=== PATIENT | female | born 1985 | race Caucasian/White ===

== ENCOUNTER 2019-03-27 12:57 | Inpatient (IN) | payer OTHER ==
[2019-03-27 13:25] VITALS: BMI 25.5
--- NOTE | 2019-03-27 17:44 | HP ---
CIWA Score - Admission Criteria OASAS Guidelines: Admission for Medically Managed Detox: Requires at least one of the followin. CIWA greater than 12 2. Seizures within the past 24 hours 3. Delirium tremens within the past 24 hours 4. Hallucinations within the past 24 hours 5. Acute intervention needed for co occurring medical disorder 6. Acute intervention needed for co occurring psychiatric disorder 7. Severe withdrawal that cannot be handled at a lower level of care (continued vomiting, continued diarrhea, abnormal vital signs) requiring intravenous medication and/or fluids 8. Admission ROS [facility] - HPI Chief Complaint: rehab from cocaine, pt on suboxone 34 yo with h/o seizures (epilepsy), mitral valve prolapse, joint pain. Recently fell- now with abrasion of L wrist area. Left inpt rehab 2 months ago, Pt states she relapsed 2 weeks ago- started using heroin (stopped Suboxone) and cocaine about a week, and went for a drug test at [facility] and was positive for illicits and sent here for rehab. PCP- in [place], originally from [employer] [employer] [place] Hero[place]- IV 1 bag yesterday morning cocaine- last use 2 days ago THC- denies DUR- suboxone 4mg #60 on 03/19/19 Concerta 36 mg #30 03/19/19 Utox- beatriz, MOP, Bup, THC Allergies/Adverse Reactions: Allergies Allergy/AdvReac Type Severity Reaction Status Date / Time amoxicillin Allergy Intermediate Hives Verified 03/27/19 13:11 Penicillins Allergy Intermediate Hives Verified 03/27/19 13:11 - Ebola screening Have you traveled outside of the country in the last 21 days: No Have you had contact with anyone from an Ebola affected area: No Patient History - Patient Medical History Hx Cardiac Disorders: Yes (mitral valve prolapse) Hx Seizures: Yes Other Medical History: arm abrasion - Patient Surgical History Other Surgical History: ankle surgery, R hand - PPD History Documented Results: Negative w/o proof - Smoking Cessation Smoking history: Current every day smoker Have you smoked in the past 12 months: Yes Aproximately how many cigarettes per day: 20 Hx Chewing Tobacco Use: No Initiated information on smoking cessation: Yes 'Breaking Loose' booklet given: 03/27/19 - Substances abused Heroin Substance route: Injection Frequency: Daily Amount used: 1BAG Age of first use: 27 Date of last use: 03/26/19 Cocaine Substance route: Injection Frequency: 1-2 times per week Amount used: 1BAG Age of first use: 27 Date of last use: 03/24/19 Family Disease History - Family Disease History Family Disease History: Heart Disease: Grandparent Admission Physical Exam [facility] - Vital Signs Vital Signs: Vital Signs - 24 hr 03/27/19 13:08 Temperature 97.5 F L Pulse Rate 90 Respiratory 18 Rate Blood Pressure 106/67 - Physical General Appearance: Yes: Within Normal Limits, No Apparent Distress HEENTM: Yes: Within Normal Limits, EOMI, Hearing grossly Normal, Normal ENT Inspection, Normal Voice Respiratory: Yes: Within Normal Limits, Chest Non-Tender, Lungs Clear Neck: Yes: Within Normal Limits Cardiology: Yes: Within Normal Limits, Regular Rate, S1, S2 Abdominal: Yes: Within Normal Limits, Normal Bowel Sounds, Other (navel ring) Genitourinary: Yes: Within Normal Limits Back: Yes: Within Normal Limits Musculoskeletal: Yes: Within Normal Limits Extremities: Yes: Other (bruises and scratches from fall) Neurological: Yes: Within Normal Limits, mutual fund accountant II-XII NML intact, Normal Mood/ Affect, Normal Response Integumentary: Yes: Track Rojas, Other (with 2" X 3" superficial ulcer inner aspect of L forearm- some exudate on surface of ulcer- no evidence of ceullitis) - Diagnostic (1) Cocaine use disorder Current Visit: Yes Status: Acute (2) Opioid use disorder Current Visit: Yes Status: Acute (3) Seizures Current Visit: Yes Status: Acute (4) ADHD Current Visit: Yes Status: Acute (5) Depression Current Visit: Yes Status: Acute (6) Anxiety Current Visit: Yes Status: Acute Breathalyzer - Breathalyzer Breathalyzer: 0 Urine Drug Screen - Test Device Lot number: [id number] Expiration date: 12/14/20 - Control Is test valid?: Yes - Results Drug screen NEGATIVE: No Urine drug screen results: THC-Marijuana, BEATRIZ-Cocaine, MOP-Opiates, BUP-Suboxone Inpatient Rehab Admission - Rehab Decision to Admit Inpatient rehab admission?: Yes - Initial Determination Are CD services needed?: Yes Free of communicable disease: Yes Not in need of hospitalization: Yes - Rehab Admission Criteria Previous failed treatment: Yes Poor recovery environment: Yes Comorbidities: Yes Lacks judgement: Yes Patient is meeting Inpatient Rehab admission criteria:: Yes (cocaine use)
[2019-03-27] MEDS ORDERED: MAGNESIUM CITRATE 300 ML BOTTLE PO PRN (17:56)
[2019-03-27] MEDS ORDERED: LOPERAMIDE HCL 2 MG CAPSULE PO PRN (17:56)
[2019-03-27] MEDS ORDERED: MENTHOL/PHENOL 1 EACH UD MM PRN (17:56)
[2019-03-27] MEDS ORDERED: MAGNESIUM HYDROX 2400MG/30ML ORAL SUSPENSION 30 ML CUP PO PRN (17:56)
[2019-03-27] MEDS ORDERED: guaiFENesin 200 MG/10 ML 10 ML UNIT-DOSE CUPS PO PRN (17:56)
[2019-03-27] MEDS ORDERED: MAG HYDROX/AL HYDROX/SIMETH 30 ML UNIT-DOSE CUP PO PRN (17:56)
[2019-03-27] MEDS ORDERED: P-EPHED 60MG/TRIPROLIDI 2.5MG TABLET PO PRN (17:56)
[2019-03-27] MEDS: BACITRACIN 15 GM TUBE TOPICAL OINTMENT TP SCH (19:41)
[2019-03-27] MEDS: PHENYTOIN NA EXTENDED 100 MG CAPSULE (FP) PO SCH (21:12)
[2019-03-27] MEDS: SULFAMETHOXAZOLE/TRIMETHOPRIM 800MG/160MG D.S. TABLET PO SCH (21:12)
[2019-03-27] MEDS: GABAPENTIN 300 MG CAPSULE (FP) PO SCH (21:13)
[2019-03-27] MEDS: BUPRENORPHINE/NALOXONE 2 MG/0.5 MG FILM PACKET SL SCH (21:13)
[2019-03-27] MEDS: THIAMINE HCL 100 MG TABLET (FP) PO SCH (21:14)
[2019-03-27] MEDS ORDERED: traZODone HCL 50 MG TABLET (FP) PO SCH (22:00)
[2019-03-28] MEDS: GABAPENTIN 300 MG CAPSULE (FP) PO SCH ×3 (06:33→21:14)
[2019-03-28] MEDS: PHENYTOIN NA EXTENDED 100 MG CAPSULE (FP) PO SCH ×3 (06:34→21:14)
[2019-03-28] MEDS: BACITRACIN 15 GM TUBE TOPICAL OINTMENT TP SCH (09:28)
[2019-03-28] MEDS: NICOTINE 21 MG/24 HOURS TOPICAL PATCH TD SCH (09:29)
[2019-03-28] MEDS: SULFAMETHOXAZOLE/TRIMETHOPRIM 800MG/160MG D.S. TABLET PO SCH ×2 (09:29→21:14)
[2019-03-28] MEDS: PRENATAL VITAMINS W/ FOLIC ACID TABLET (FP) PO SCH (09:30)
[2019-03-28] MEDS: FLUoxetine HCL 20 MG CAPSULE (FP) PO SCH (09:30)
[2019-03-28] MEDS: BUPRENORPHINE/NALOXONE 2 MG/0.5 MG FILM PACKET SL SCH ×2 (09:31→21:15)
[2019-03-28] MEDS ORDERED: VENLAFAXINE HCL 37.5 MG E.R. CAPSULE (FP) PO SCH (10:00)
[2019-03-28 12:31] LABS: HEMOGLOBIN 12.9 GM/dL (10.7-15.3); MCHC 33.9 g/dl (32.0-36.0); MEAN CELL VOLUME 91.4 fl (80-96); MEAN PLT VOLUME 7.7 fl (7.5-11.1); RBC 4.16 M/mm3 (3.60-5.2); RDW 13.9 % (11.6-15.6)
[2019-03-28 12:33] LABS: ALBUMIN 2.9 g/dl (3.4-5.0); BILIRUBIN,TOTAL 0.4 mg/dL (0.2-1); POTASSIUM 4.3 mmol/L (3.5-5.1)
[2019-03-28 12:34] LABS: PLATELET COUNT 270 K/MM3 (134-434)
[2019-03-28] MEDS ORDERED: PHENYTOIN NA EXTENDED 100 MG CAPSULE (FP) PO ONE (14:17)
--- NOTE | 2019-03-28 17:25 | CONSULT ---
[facility] Psychiatric Consult - Data Date of interview: 03/28/19 Admission source: [facility]. Court mandate. Identifying data: First contact with [facility] and direct admission to [facility] for this 34 y/o female, court mandated for inpatient rehabilitation treatment addressing opioid + cocaine dependence co-morbid with MDD and Anxiety Disorder. Interviewed at [facility], with Ms Fowler, a female nursing staff, in attendance. Patient is single, no children, domiciled, unemployed and supported on food stamps. Substance Abuse History: Discussed in this session. Patient reports that she has relapsed into heroin + cocaine use aout two weeks ago. Details in current [facility] report as follows : Smoking history: Current every day smoker. Have you smoked in the past 12 months: Yes. Aproximately how many cigarettes per day: 20. Hx Chewing Tobacco Use: No. Initiated information on smoking cessation: Yes. 'Breaking Loose' booklet given: 03/27/19. - Substances abused. Heroin. Substance route: Injection. Frequency: Daily. Amount used: 1BAG. Age of first use: 27. Date of last use: 03/26/19. Cocaine. Substance route : Injection. Frequency: 1-2 times per week. Amount used: 1BAG. Age of first use: 27. Date of last use: 03/24/19 Medical History: Remarkable for seizure disorder (on phenytoin), chronic joint pain and a history of mitral valve prolapse. Psychiatric History: No reported history of psychiatric hospitalizations. Patient indicates that she has started experiencing emotional disturbances during high school years (seen by guidance counselors). She entered treatment aroung age 19 (was placed on lexapro by a psychiatrist). Dropped out of psychiatric OPD care. Diagnosed with MDD, Anxiety Disorder and ADHD (on concerta ). Ms Blair is currently seeing a psychiatrist, for medication managemnt, at the [facility] in [facility]. Patient denies history of suicide attempts. Physical/Sexual Abuse/Trauma History: Patient denies. Additional Comment: Urine drug screen results: THC-Marijuana, SAÚL-Cocaine, MOP- Opiates, BUP-Suboxone. Noted. Mental Status Exam - Mental Status Exam Alert and Oriented to: Time, Place, Person Cognitive Function: Good Patient Appearance: Well Groomed (wearing eyeglasses, tall stature) Mood: Hopeful Affect: Appropriate, Normal Range Patient Behavior: Appropriate, Cooperative Speech Pattern: Clear, Appropriate Voice Loudness: Normal Thought Process: Intact, Goal Oriented Thought Disorder: Not Present Hallucinations: Denies Suicidal Ideation: Denies Homicidal Ideation: Denies Insight/Judgement: Fair Sleep: Well (now that she is on trazodone but she reports hypersomnia and requests decrease of dose) Appetite: Good Gait/Station: Normal Psychiatric Findings - Problem List ([place] 1, 2,3) (1) Opioid use disorder Current Visit: Yes Status: Chronic (2) Opioid dependence on agonist therapy Current Visit: Yes Status: Chronic (3) Cocaine use disorder Current Visit: Yes Status: Chronic (4) ADHD Current Visit: Yes Status: Chronic (5) History of depression Current Visit: Yes Status: Chronic (6) Insomnia Current Visit: Yes Status: Chronic (7) Non-compliance Current Visit: Yes Status: Chronic - Initial Treatment Plan Initial Treatment Plan: Psychoeducation. NA meetings. Sleep hygiene. Support and motivational counseling. Effexor discontinued. Prozac 20 mg po daily + trazodone 50 mg po hs (reduced from 150 mg). Side effects/benefits of each drug are discussed with patient. Ms Blair is in agreement with this plan of care. Observation.
[2019-03-28 18:07] LABS: EPI CELLS 14.2 /HPF (0-5/HPF); HYALINE CASTS 11 /lpf (0-8); URINE APPEARANCE CLEAR; URINE BACTERIA 236.9 /hpf (NEGATIVE); URINE BILIRUBIN NEGATIVE (NEGATIVE); URINE COLOR YELLOW; URINE GLUCOSE (UA) NEGATIVE (NEGATIVE); URINE KETONE NEGATIVE (NEGATIVE); URINE LEUK ESTERASE TRACE (NEGATIVE); URINE NITRITE NEGATIVE (NEGATIVE); URINE PROTEIN NEGATIVE (NEGATIVE); URINE RBC 2 /hpf (0-4); URINE UROBILINOGEN 0.2 mg/dL (0.2-1.0); URINE WBC 3 /hpf (0-5)
[2019-03-28] MEDS: traZODone HCL 50 MG TABLET (FP) PO SCH (21:15)
[2019-03-28] MEDS: THIAMINE HCL 100 MG TABLET (FP) PO SCH (21:16)
[2019-03-29] MEDS: IBUPROFEN 400 MG TABLET (FP) PO PRN ×3 (03:04→18:07)
[2019-03-29] MEDS: hydrOXYzine PAMOATE 25 MG CAPSULE (FP) PO PRN ×4 (03:27→21:53)
[2019-03-29] MEDS: PHENYTOIN NA EXTENDED 100 MG CAPSULE (FP) PO SCH ×3 (06:29→21:21)
[2019-03-29] MEDS: GABAPENTIN 300 MG CAPSULE (FP) PO SCH ×3 (06:29→21:22)
[2019-03-29] MEDS: PRENATAL VITAMINS W/ FOLIC ACID TABLET (FP) PO SCH (10:08)
[2019-03-29] MEDS: SULFAMETHOXAZOLE/TRIMETHOPRIM 800MG/160MG D.S. TABLET PO SCH ×2 (10:09→21:22)
[2019-03-29] MEDS: NICOTINE 21 MG/24 HOURS TOPICAL PATCH TD SCH (10:09)
[2019-03-29] MEDS: BUPRENORPHINE/NALOXONE 2 MG/0.5 MG FILM PACKET SL SCH (10:09)
[2019-03-29] MEDS: FLUoxetine HCL 20 MG CAPSULE (FP) PO SCH (10:09)
[2019-03-29] MEDS: BACITRACIN 15 GM TUBE TOPICAL OINTMENT TP SCH (10:09)
--- NOTE | 2019-03-29 11:09 | PN ---
S COWS - Scale Resting Pulse: 1= CT 81-100 Sweatin= No chills or Flushing (COWS score is 6, many symptoms have resolved since patient has been in rehab.) Restless Observation: 1= Difficult to Sit Still Pupil Size: 0= Normal to Room Light Bone or Joint Aches: 1= Mild Discomfort Runny Nose/ Eye Tearin= None (last time used was March 26. T) GI Upset > 30mins: 0= None Tremor Observation of Outstretched Hands: 1= Tremor Welch, Not Seen Yawning Observation: 0= None Anxiety or Irritability: 2=Irritable/Anxious Goose Flesh Skin: 0=Smooth Skin COWS Score: 6 S Progress Note (SOAP) Subjective: Client requesting increase in her suboxone, was taking for 1.5 years at 8mg BID , but recently relapsed on heroin. She is now on 4mg BID and feeling the urge to use although many of the withdrawal symptoms are resolving. Objective: see COWS- score 6. Medically stable. Heart rate regular, lungs clear, abd soft, non-tender, non-distended. BS+ 03/29/19 11:14 CBC, BMP 03/28/19 09:10 03/28/19 09:10 Vital Signs (72 hours) 03/27/19 03/27/19 03/28/19 13:08 18:11 00:30 Temperature 97.5 F L 97.8 F Pulse Rate 90 70 Respiratory 18 17 16 Rate Blood Pressure 106/67 116/73 03/28/19 03/28/19 03/29/19 03:30 07:09 00:30 Temperature 97.9 F Pulse Rate 91 H Respiratory 16 18 16 Rate Blood Pressure 104/66 03/29/19 06:53 Temperature 98.3 F Pulse Rate 81 Respiratory 18 Rate Blood Pressure 96/66 Laboratory Last Values WBC 5.0 K/mm3 (4.0-10.0) 03/28/19 09:10 RBC 4.16 M/mm3 (3.60-5.2) 03/28/19 09:10 Hgb 12.9 GM/dL (10.7-15.3) 03/28/19 09:10 Hct 38.0 % (32.4-45.2) 03/28/19 09:10 MCV 91.4 fl (80-96) 03/28/19 09:10 MCH 31.0 pg (25.7-33.7) 03/28/19 09:10 MCHC 33.9 g/dl (32.0-36.0) 03/28/19 09:10 RDW 13.9 % (11.6-15.6) 03/28/19 09:10 Plt Count 270 K/MM3 (134-434) 03/28/19 09:10 MPV 7.7 fl (7.5-11.1) 03/28/19 09:10 Sodium 143 mmol/L (136-145) 03/28/19 09:10 Potassium 4.3 mmol/L (3.5-5.1) 03/28/19 09:10 Chloride 109 mmol/L (98-107) H 03/28/19 09:10 Carbon Dioxide 27 mmol/L (21-32) 03/28/19 09:10 Anion Gap 7 MMOL/L (8-16) L 03/28/19 09:10 BUN 13.0 mg/dL (7-18) 03/28/19 09:10 Creatinine 1.0 mg/dL (0.55-1.3) 03/28/19 09:10 Est GFR (CKD-EPI)AfAm 85.12 03/28/19 09:10 Est GFR (CKD-EPI)NonAf 73.45 03/28/19 09:10 Random Glucose 88 mg/dL (74-106) 03/28/19 09:10 Calcium 9.0 mg/dL (8.5-10.1) 03/28/19 09:10 Total Bilirubin 0.4 mg/dL (0.2-1) 03/28/19 09:10 AST 17 U/L (15-37) 03/28/19 09:10 ALT 22 U/L (13-61) 03/28/19 09:10 Alkaline Phosphatase 66 U/L (45-117) 03/28/19 09:10 Total Protein 6.0 g/dl (6.4-8.2) L 03/28/19 09:10 Albumin 2.9 g/dl (3.4-5.0) L 03/28/19 09:10 Urine Color Yellow 03/28/19 06:50 Urine Appearance Clear 03/28/19 06:50 Urine pH 8.0 (5.0-8.0) 03/28/19 06:50 Ur Specific [place] 1.016 (1.010-1.035) 03/28/19 06:50 Urine Protein Negative (NEGATIVE) 03/28/19 06:50 Urine Glucose (UA) Negative (NEGATIVE) 03/28/19 06:50 Urine Ketones Negative (NEGATIVE) 03/28/19 06:50 Urine Blood Trace (NEGATIVE) 03/28/19 06:50 Urine Nitrite Negative (NEGATIVE) 03/28/19 06:50 Urine Bilirubin Negative (NEGATIVE) 03/28/19 06:50 Urine Urobilinogen 0.2 mg/dL (0.2-1.0) 03/28/19 06:50 Ur Leukocyte Esterase Trace (NEGATIVE) 03/28/19 06:50 Urine WBC (Auto) 3 /hpf (0-5) 03/28/19 06:50 Urine RBC (Auto) 2 /hpf (0-4) 03/28/19 06:50 Urine Casts (Auto) 11 /lpf (0-8) 03/28/19 06:50 U Epithel Cells (Auto) 14.2 /HPF (0-5/HPF) 03/28/19 06:50 Urine Bacteria (Auto) 236.9 /hpf (NEGATIVE) 03/28/19 06:50 POC Urine HCG, Qual Negative 03/27/19 17:34 Phenytoin 2.1 ug/ml (10.0-20.0) L 03/28/19 09:10 RPR Titer Nonreactive (NONREACTIVE) 03/28/19 09:10 Assessment: Experiencing wthdrawal symptoms. 03/29/19 11:16 Plan: Will increase suboxone to 8 mg BID.
[2019-03-29] MEDS ORDERED: BUPRENORPHINE/NALOXONE 2 MG/0.5 MG FILM PACKET SL ONE ×2 (11:18→11:21)
[2019-03-29] MEDS: THIAMINE HCL 100 MG TABLET (FP) PO SCH (21:21)
[2019-03-29] MEDS: traZODone HCL 50 MG TABLET (FP) PO SCH (21:22)
[2019-03-29] MEDS: MINERAL OIL/PETROLAT/WATER TOPICAL CREAM 113 GM JAR TP PRN (21:24)
[2019-03-29] MEDS ORDERED: BUPRENORPHINE/NALOXONE 8 MG/2 MG FILM PACKET SL ONE (22:00)
[2019-03-30] MEDS: hydrOXYzine PAMOATE 25 MG CAPSULE (FP) PO PRN ×2 (05:01→21:37)
[2019-03-30] MEDS: IBUPROFEN 400 MG TABLET (FP) PO PRN (05:01)
[2019-03-30] MEDS: PHENYTOIN NA EXTENDED 100 MG CAPSULE (FP) PO SCH ×3 (06:45→21:37)
[2019-03-30] MEDS: GABAPENTIN 300 MG CAPSULE (FP) PO SCH ×3 (06:45→21:37)
[2019-03-30] MEDS ORDERED: BACITRACIN 0.9 GM PACKET ONE (09:18)
[2019-03-30] MEDS: SULFAMETHOXAZOLE/TRIMETHOPRIM 800MG/160MG D.S. TABLET PO SCH ×2 (10:20→21:38)
[2019-03-30] MEDS: BACITRACIN 15 GM TUBE TOPICAL OINTMENT TP SCH (10:25)
[2019-03-30] MEDS: FLUoxetine HCL 20 MG CAPSULE (FP) PO SCH (10:29)
[2019-03-30] MEDS: PRENATAL VITAMINS W/ FOLIC ACID TABLET (FP) PO SCH (10:29)
[2019-03-30] MEDS: NICOTINE 21 MG/24 HOURS TOPICAL PATCH TD SCH (10:29)
[2019-03-30] MEDS: BUPRENORPHINE/NALOXONE 8 MG/2 MG FILM PACKET SL SCH ×2 (10:30→21:39)
--- NOTE | 2019-03-30 19:26 | PN ---
Psychiatric Progress Note Vital Signs: Vital Signs Period Temp Pulse Resp BP Sys/Carey Pulse Ox Last 24 Hr 97.9 F 79 16-18 110/72 Date of Session: 03/30/19 Chief Complaint:: " I feel irritable. I feel like this when i'm off my medications". HPI: Patient reports discontinuation symptoms from not accepting effexor. ROS: Patient coherent, calm and cooperative X3. Current Medications: Active Medications Generic Name Dose Route Start Last Admin Trade Name Freq PRN Reason Stop Dose Admin Acetaminophen 650 mg 03/27/19 17:56 Tylenol - PO Q4H PRN FEVER Al Hydroxide/Mg Hydroxide 30 ml 03/27/19 17:56 Mylanta Oral Suspension - PO Q6H PRN DYSPEPSIA Bacitracin 1 applic 03/27/19 18:30 03/30/19 10:25 Bacitracin - TP 1 applic DAILY CALISTA Administration Buprenorphine/Naloxone 1 each 03/30/19 10:00 03/30/19 10:30 Suboxone 8mg/2mg Sl Film - SL 04/05/19 09:59 1 each BID CALISTA Administration Eucalyptus/Menthol/Phenol/Sorbitol 1 each 03/27/19 17:56 Cepastat Lozenge - MM Q4H PRN SORE THROAT Fluoxetine HCl 20 mg 03/28/19 10:00 03/30/19 10:29 Prozac - PO 20 mg DAILY CALISTA Administration Gabapentin 600 mg 03/27/19 22:00 03/30/19 14:09 Neurontin - PO 600 mg TID CALISTA Administration Guaifenesin 10 ml 03/27/19 17:56 Robitussin - PO Q6H PRN COUGH Hydroxyzine Pamoate 25 mg 03/27/19 17:56 03/30/19 05:01 Vistaril - PO 25 mg Q4H PRN Administration AGITATION Ibuprofen 400 mg 03/27/19 17:56 03/30/19 05:01 Motrin - PO 400 mg Q6H PRN Administration Pain level 4-6 Loperamide HCl 4 mg 03/27/19 17:56 Imodium - PO Q6H PRN DIARRHEA Magnesium Citrate 300 ml 03/27/19 17:56 Citroma - PO Q48H PRN CONSTIPATION Magnesium Hydroxide 30 ml 03/27/19 17:56 Milk Of Magnesia - PO DAILY PRN CONSTIPATION Melatonin 5 mg 03/27/19 22:00 Melatonin PO HS PRN INSOMNIA Multi-Ingredient Lotion 1 applic 03/29/19 11:29 03/29/19 21:24 Eucerin (Small Jar) - TP 1 applic BID PRN Administration DRY SKIN Nicotine 21 mg 03/28/19 10:00 03/30/19 10:29 Nicoderm Patch - TD 21 mg DAILY CALISTA Administration Phenytoin Sodium 100 mg 03/27/19 22:00 03/30/19 14:08 Dilantin - PO 100 mg TID CALISTA Administration Multivit/Folic Acid/Iron 1 tab 03/28/19 10:00 03/30/19 10:29 Vitamins (Sjr) - PO 1 tab DAILY CALISTA Administration Pseudoephedrine/Triprolidine 1 combo 03/27/19 17:56 Actifed - PO TID PRN NASAL CONGESTION Thiamine HCl 100 mg 03/27/19 22:00 03/29/19 21:21 Vitamin B1 - PO 100 mg HS CALISTA Administration Trazodone HCl 50 mg 03/28/19 22:00 03/29/19 21:22 Desyrel - PO 50 mg HS CALISTA Administration Trimethoprim/Sulfamethoxazole 1 each 03/27/19 22:00 03/30/19 10:20 Bactrim Ds - PO 1 each BID CALISTA Administration Medication(s) Change(s): Yes. Current Side Effect: Yes Lab tests ordered: No Lab tests reviewed: No Provider note:: Patient requesting to be resumed on Effexor. Dr. Viera note read and appreciated. States she feels discontinuation symptoms from the effexor. Pharmacy contacted at [facility] @ [phone] and able to speak to pharmacy staff. As per pharmacy staff a prescription of the following medications were picked up by patient on February 26 (30 day supply): Effexor 75mg XR + Prozac 40mg daily + Trazodone 150mg + Lamictal 25mg. Patient reports taking effexor and prozac despite relapsing on heroin. Will resume patient on effexor 37.5 due to patient reporting discontinuation symptoms and prozac 20mg will be increased to 40mg. Trazodone will remain at 50mg HS. Lamictal will not be resumed at this time as there is no clinical justification to restart medication. Patient has reports noncompliance with lamictal. Patient in agreement with plan. Total face to face time:: 30 Mental Status Exam - Mental Status Exam Alert and Oriented to: Time, Place, Person Cognitive Function: Good Patient Appearance: Well Groomed Mood: Euthymic Affect: Appropriate Patient Behavior: Cooperative Speech Pattern: Appropriate Voice Loudness: Normal Thought Process: Goal Oriented Thought Disorder: Not Present Hallucinations: Denies Suicidal Ideation: Denies Homicidal Ideation: Denies Insight/Judgement: Poor Sleep: Fair Appetite: Fair Muscle strength/Tone: Normal Gait/Station: Normal Psychiatric Treatment Plan - Problem List (1) Cocaine use disorder Current Visit: Yes (2) History of depression Current Visit: Yes (3) Opioid dependence on agonist therapy Current Visit: Yes (4) Opioid use disorder Current Visit: Yes (5) Insomnia Current Visit: Yes
[2019-03-30] MEDS: THIAMINE HCL 100 MG TABLET (FP) PO SCH (21:37)
[2019-03-30] MEDS: traZODone HCL 50 MG TABLET (FP) PO SCH (21:37)
[2019-03-31] MEDS: GABAPENTIN 300 MG CAPSULE (FP) PO SCH ×3 (06:43→21:26)
[2019-03-31] MEDS: PHENYTOIN NA EXTENDED 100 MG CAPSULE (FP) PO SCH ×3 (06:44→21:26)
[2019-03-31] MEDS: hydrOXYzine PAMOATE 25 MG CAPSULE (FP) PO PRN ×3 (06:45→21:27)
--- NOTE | 2019-03-31 07:50 | PN ---
S Progress Note Note: SEEN FOR LEFT LOWER EXTREMITY ABRASION. CLIENT REPORTS CUTTING SELF WHILE SHAVING WITH [employer]OR [employer]ADE. Vital Signs Temperature 98.0 F 03/31/19 07:10 Pulse Rate 92 H 03/31/19 07:10 Respiratory Rate 16 03/31/19 07:10 Blood Pressure 97/65 03/31/19 07:10 O2 Sat by Pulse Oximetry (%) LLE ABOVE THE ANKLE NOTED WITH SUPERFICIAL ABRASION CLEANS W/ NS APPLY BACITRACIN WITH CDD DAILY X 5 DAYS
[2019-03-31] MEDS: IBUPROFEN 400 MG TABLET (FP) PO PRN ×2 (08:37→21:28)
[2019-03-31] MEDS ORDERED: PT OWN MED DRAWER 7, Y5N ONE (08:51)
[2019-03-31] MEDS: BACITRACIN 15 GM TUBE TOPICAL OINTMENT TP SCH (09:51)
[2019-03-31] MEDS: MINERAL OIL/PETROLAT/WATER TOPICAL CREAM 113 GM JAR TP PRN (09:51)
[2019-03-31] MEDS: BUPRENORPHINE/NALOXONE 8 MG/2 MG FILM PACKET SL SCH ×2 (09:51→21:26)
[2019-03-31] MEDS: PRENATAL VITAMINS W/ FOLIC ACID TABLET (FP) PO SCH (09:51)
[2019-03-31] MEDS: NICOTINE 21 MG/24 HOURS TOPICAL PATCH TD SCH (09:51)
[2019-03-31] MEDS: SULFAMETHOXAZOLE/TRIMETHOPRIM 800MG/160MG D.S. TABLET PO SCH ×2 (09:52→21:26)
[2019-03-31] MEDS: FLUoxetine HCL 20 MG CAPSULE (FP) PO SCH (09:52)
[2019-03-31] MEDS: VENLAFAXINE HCL 37.5 MG E.R. CAPSULE (FP) PO SCH (09:52)
--- NOTE | 2019-03-31 15:41 | PN ---
[facility] Progress Note Note: Patient is on dialntin 100mg 3 times/daily for seizures. Her value on 03/28 was 2.1. Today, her value is 7.8L Therapeutic levels can take 7- 10 days, will repeat the level 0n 04/02. Abnormal Lab Results 03/31/19 10:00 Phenytoin 7.8 L
[2019-03-31] MEDS: MELATONIN 5 MG TABLETS PO PRN (21:25)
[2019-03-31] MEDS: THIAMINE HCL 100 MG TABLET (FP) PO SCH (21:26)
[2019-03-31] MEDS: traZODone HCL 50 MG TABLET (FP) PO SCH (21:26)
[2019-04-01] MEDS: ACETAMINOPHEN 325 MG TABLET (FP) PO PRN (00:33)
[2019-04-01] MEDS: GABAPENTIN 300 MG CAPSULE (FP) PO SCH ×3 (06:40→21:31)
[2019-04-01] MEDS: PHENYTOIN NA EXTENDED 100 MG CAPSULE (FP) PO SCH ×3 (06:40→21:31)
[2019-04-01] MEDS: hydrOXYzine PAMOATE 25 MG CAPSULE (FP) PO PRN ×3 (06:40→19:10)
[2019-04-01] MEDS: BACITRACIN 15 GM TUBE TOPICAL OINTMENT TP SCH (09:45)
[2019-04-01] MEDS: VENLAFAXINE HCL 37.5 MG E.R. CAPSULE (FP) PO SCH (09:45)
[2019-04-01] MEDS: SULFAMETHOXAZOLE/TRIMETHOPRIM 800MG/160MG D.S. TABLET PO SCH ×2 (09:45→21:31)
[2019-04-01] MEDS: PRENATAL VITAMINS W/ FOLIC ACID TABLET (FP) PO SCH (09:46)
[2019-04-01] MEDS: FLUoxetine HCL 20 MG CAPSULE (FP) PO SCH (09:46)
[2019-04-01] MEDS: NICOTINE 21 MG/24 HOURS TOPICAL PATCH TD SCH (09:46)
[2019-04-01] MEDS: BUPRENORPHINE/NALOXONE 8 MG/2 MG FILM PACKET SL SCH ×2 (09:48→21:34)
[2019-04-01] MEDS: IBUPROFEN 400 MG TABLET (FP) PO PRN ×2 (13:38→21:32)
[2019-04-01] MEDS: traZODone HCL 50 MG TABLET (FP) PO SCH (21:31)
[2019-04-01] MEDS: THIAMINE HCL 100 MG TABLET (FP) PO SCH (21:31)
[2019-04-01] MEDS: MELATONIN 5 MG TABLETS PO PRN (21:32)
[2019-04-02] MEDS: hydrOXYzine PAMOATE 25 MG CAPSULE (FP) PO PRN ×4 (06:16→19:45)
[2019-04-02] MEDS: PHENYTOIN NA EXTENDED 100 MG CAPSULE (FP) PO SCH ×3 (06:16→21:15)
[2019-04-02] MEDS: GABAPENTIN 300 MG CAPSULE (FP) PO SCH ×3 (06:16→21:16)
[2019-04-02] MEDS: IBUPROFEN 400 MG TABLET (FP) PO PRN ×2 (06:17→19:45)
[2019-04-02] MEDS: NICOTINE 21 MG/24 HOURS TOPICAL PATCH TD SCH (09:57)
[2019-04-02] MEDS: FLUoxetine HCL 20 MG CAPSULE (FP) PO SCH (09:57)
[2019-04-02] MEDS: PRENATAL VITAMINS W/ FOLIC ACID TABLET (FP) PO SCH (09:57)
[2019-04-02] MEDS: SULFAMETHOXAZOLE/TRIMETHOPRIM 800MG/160MG D.S. TABLET PO SCH ×2 (09:57→21:15)
[2019-04-02] MEDS: BUPRENORPHINE/NALOXONE 8 MG/2 MG FILM PACKET SL SCH ×2 (09:57→21:15)
[2019-04-02] MEDS: MINERAL OIL/PETROLAT/WATER TOPICAL CREAM 113 GM JAR TP PRN (10:01)
[2019-04-02] MEDS: BACITRACIN 15 GM TUBE TOPICAL OINTMENT TP SCH (10:01)
[2019-04-02] MEDS: VENLAFAXINE HCL 37.5 MG E.R. CAPSULE (FP) PO SCH (10:02)
[2019-04-02] MEDS ORDERED: BENZOCAINE 20 % GEL TUBE MM PRN (12:57)
--- NOTE | 2019-04-02 13:30 | PN ---
[facility] Progress Note Note: Patient seen for c/o right eyebrow area discomfort after sustaining fall 3 weeks ago. Patient states she did not seek treatment after fall but reports tenderness to right frontal area. Patient denies dizziness, visual changes and headaches. Patient also c/o toothache as right lower molar cap fell off. Vital Signs Temperature 97.6 F 04/02/19 07:06 Pulse Rate 94 H 04/02/19 07:06 Respiratory Rate 18 04/02/19 07:06 Blood Pressure 119/79 04/02/19 07:06 O2 Sat by Pulse Oximetry (%) Laboratory Last Values WBC 5.0 K/mm3 (4.0-10.0) 03/28/19 09:10 RBC 4.16 M/mm3 (3.60-5.2) 03/28/19 09:10 Hgb 12.9 GM/dL (10.7-15.3) 03/28/19 09:10 Hct 38.0 % (32.4-45.2) 03/28/19 09:10 MCV 91.4 fl (80-96) 03/28/19 09:10 MCH 31.0 pg (25.7-33.7) 03/28/19 09:10 MCHC 33.9 g/dl (32.0-36.0) 03/28/19 09:10 RDW 13.9 % (11.6-15.6) 03/28/19 09:10 Plt Count 270 K/MM3 (134-434) 03/28/19 09:10 MPV 7.7 fl (7.5-11.1) 03/28/19 09:10 Sodium 143 mmol/L (136-145) 03/28/19 09:10 Potassium 4.3 mmol/L (3.5-5.1) 03/28/19 09:10 Chloride 109 mmol/L (98-107) H 03/28/19 09:10 Carbon Dioxide 27 mmol/L (21-32) 03/28/19 09:10 Anion Gap 7 MMOL/L (8-16) L 03/28/19 09:10 BUN 13.0 mg/dL (7-18) 03/28/19 09:10 Creatinine 1.0 mg/dL (0.55-1.3) 03/28/19 09:10 Est GFR (CKD-EPI)AfAm 85.12 03/28/19 09:10 Est GFR (CKD-EPI)NonAf 73.45 03/28/19 09:10 Random Glucose 88 mg/dL (74-106) 03/28/19 09:10 Calcium 9.0 mg/dL (8.5-10.1) 03/28/19 09:10 Total Bilirubin 0.4 mg/dL (0.2-1) 03/28/19 09:10 AST 17 U/L (15-37) 03/28/19 09:10 ALT 22 U/L (13-61) 03/28/19 09:10 Alkaline Phosphatase 66 U/L (45-117) 03/28/19 09:10 Total Protein 6.0 g/dl (6.4-8.2) L 03/28/19 09:10 Albumin 2.9 g/dl (3.4-5.0) L 03/28/19 09:10 Urine Color Yellow 03/28/19 06:50 Urine Appearance Clear 03/28/19 06:50 Urine pH 8.0 (5.0-8.0) 03/28/19 06:50 Ur Specific [place] 1.016 (1.010-1.035) 03/28/19 06:50 Urine Protein Negative (NEGATIVE) 03/28/19 06:50 Urine Glucose (UA) Negative (NEGATIVE) 03/28/19 06:50 Urine Ketones Negative (NEGATIVE) 03/28/19 06:50 Urine Blood Trace (NEGATIVE) 03/28/19 06:50 Urine Nitrite Negative (NEGATIVE) 03/28/19 06:50 Urine Bilirubin Negative (NEGATIVE) 03/28/19 06:50 Urine Urobilinogen 0.2 mg/dL (0.2-1.0) 03/28/19 06:50 Ur Leukocyte Esterase Trace (NEGATIVE) 03/28/19 06:50 Urine WBC (Auto) 3 /hpf (0-5) 03/28/19 06:50 Urine RBC (Auto) 2 /hpf (0-4) 03/28/19 06:50 Urine Casts (Auto) 11 /lpf (0-8) 03/28/19 06:50 U Epithel Cells (Auto) 14.2 /HPF (0-5/HPF) 03/28/19 06:50 Urine Bacteria (Auto) 236.9 /hpf (NEGATIVE) 03/28/19 06:50 POC Urine HCG, Qual Negative 03/27/19 17:34 Phenytoin 8.5 ug/ml (10.0-20.0) L 04/02/19 07:30 RPR Titer Nonreactive (NONREACTIVE) 03/28/19 09:10 PE: alert and oriented x 3 skin warm and dry +perrla, eoms intact bl no facial or right eyebrow swelling/ecchymosis, + tactile tenderness to right frontal area oral gums moist, pink, intact. no redness, discharge or swelling, + missing cap of right lower molar ext full rom, no edema A/P: toothache frontal area tenderness Will order facial bones xray increase motrin to 800mg bid order oralgel for toothache monitor clinically
[2019-04-02] MEDS: COLLOIDAL OATMEAL 1 BAR EACH TP PRN (14:39)
[2019-04-02] MEDS: THIAMINE HCL 100 MG TABLET (FP) PO SCH (21:15)
[2019-04-02] MEDS: traZODone HCL 50 MG TABLET (FP) PO SCH (21:15)
[2019-04-02] MEDS: MELATONIN 5 MG TABLETS PO PRN (21:17)
[2019-04-03] MEDS: hydrOXYzine PAMOATE 25 MG CAPSULE (FP) PO PRN ×4 (04:51→21:21)
[2019-04-03] MEDS: IBUPROFEN 400 MG TABLET (FP) PO PRN ×3 (04:51→17:37)
[2019-04-03] MEDS: GABAPENTIN 300 MG CAPSULE (FP) PO SCH ×3 (06:32→21:21)
[2019-04-03] MEDS: PHENYTOIN NA EXTENDED 100 MG CAPSULE (FP) PO SCH ×3 (06:32→21:21)
[2019-04-03] MEDS: FLUoxetine HCL 20 MG CAPSULE (FP) PO SCH (09:57)
[2019-04-03] MEDS: PRENATAL VITAMINS W/ FOLIC ACID TABLET (FP) PO SCH (09:57)
[2019-04-03] MEDS: BUPRENORPHINE/NALOXONE 8 MG/2 MG FILM PACKET SL SCH ×2 (09:57→21:22)
[2019-04-03] MEDS: SULFAMETHOXAZOLE/TRIMETHOPRIM 800MG/160MG D.S. TABLET PO SCH ×2 (09:57→21:21)
[2019-04-03] MEDS: MINERAL OIL/PETROLAT/WATER TOPICAL CREAM 113 GM JAR TP PRN (09:58)
[2019-04-03] MEDS: NICOTINE 21 MG/24 HOURS TOPICAL PATCH TD SCH (09:58)
[2019-04-03] MEDS ORDERED: PT OWN MED DRAWER 7, Y5N ONE ×5 (09:59→16:23)
[2019-04-03] MEDS: BACITRACIN 15 GM TUBE TOPICAL OINTMENT TP SCH (10:29)
[2019-04-03] MEDS: VENLAFAXINE HCL 37.5 MG E.R. CAPSULE (FP) PO SCH (10:55)
--- NOTE | 2019-04-03 11:55 | PN ---
[facility] Progress Note (SOAP) Subjective: Patient requesting to leave AMA. Objective: Patient A+O x3, no neurological deficits noted; heart sounds regular, lungs clear, abd flat, soft, non-tender, non-distended, +BS, ambulates with caution as noted previously when assessed for back pain. CBC, BMP 03/28/19 09:10 03/28/19 09:10 Vital Signs (72 hours) 04/01/19 04/01/19 04/02/19 03:30 07:17 07:06 Temperature 97.3 F L 97.6 F Pulse Rate 75 94 H Respiratory 16 18 18 Rate Blood Pressure 102/62 119/79 04/03/19 04/03/19 00:30 07:11 Temperature 97.6 F Pulse Rate 80 Respiratory 17 18 Rate Blood Pressure 99/67 04/03/19 11:53 Assessment: Medically stable for discharge. 04/03/19 11:55
[2019-04-03] MEDS: MAG HYDROX/ALH/SMC/DPHA/LIDO 240 ML MOUTHWASH MM SCH ×2 (13:15→18:30)
--- NOTE | 2019-04-03 14:08 | PN ---
S Progress Note Note: reporting that Ora-gel application increases the pain. Changed to Magic Mouthwash.
[2019-04-03] MEDS: traZODone HCL 50 MG TABLET (FP) PO SCH (21:21)
[2019-04-03] MEDS: THIAMINE HCL 100 MG TABLET (FP) PO SCH (21:21)
[2019-04-04] MEDS: MAG HYDROX/ALH/SMC/DPHA/LIDO 240 ML MOUTHWASH MM SCH ×4 (00:24→18:30)
[2019-04-04] MEDS: hydrOXYzine PAMOATE 25 MG CAPSULE (FP) PO PRN ×4 (01:15→14:19)
[2019-04-04] MEDS: MELATONIN 5 MG TABLETS PO PRN (01:15)
[2019-04-04] MEDS: PHENYTOIN NA EXTENDED 100 MG CAPSULE (FP) PO SCH ×3 (06:18→21:32)
[2019-04-04] MEDS: GABAPENTIN 300 MG CAPSULE (FP) PO SCH ×2 (06:18→14:18)
[2019-04-04] MEDS: IBUPROFEN 400 MG TABLET (FP) PO PRN ×2 (06:19→18:56)
[2019-04-04] MEDS ORDERED: PT OWN MED DRAWER 7, Y5N ONE ×2 (06:20→12:03)
[2019-04-04] MEDS: NICOTINE 21 MG/24 HOURS TOPICAL PATCH TD SCH (09:56)
[2019-04-04] MEDS: FLUoxetine HCL 20 MG CAPSULE (FP) PO SCH (09:56)
[2019-04-04] MEDS: VENLAFAXINE HCL 37.5 MG E.R. CAPSULE (FP) PO SCH (09:57)
[2019-04-04] MEDS: BACITRACIN 15 GM TUBE TOPICAL OINTMENT TP SCH (09:57)
[2019-04-04] MEDS: SULFAMETHOXAZOLE/TRIMETHOPRIM 800MG/160MG D.S. TABLET PO SCH ×2 (09:57→21:32)
[2019-04-04] MEDS: PRENATAL VITAMINS W/ FOLIC ACID TABLET (FP) PO SCH (09:57)
[2019-04-04] MEDS: ACETAMINOPHEN 325 MG TABLET (FP) PO PRN (10:00)
[2019-04-04] MEDS: BUPRENORPHINE/NALOXONE 8 MG/2 MG FILM PACKET SL SCH (10:00)
--- NOTE | 2019-04-04 11:30 | PN ---
S Progress Note Note: Patient now c/o pain in right foot from bone spurs that developed after a fall several months ago at another facility. PE: no swelling, discoloration, or misalignment noted. PLAN: patient is already on maximum dose of ibuprofen. Added lidoderm patch.
[2019-04-04] MEDS: LIDOCAINE 5% TOPICAL PATCH TP SCH (11:48)
[2019-04-04] MEDS: MINERAL OIL/PETROLAT/WATER TOPICAL CREAM 113 GM JAR TP PRN (14:20)
--- NOTE | 2019-04-04 14:45 | PN ---
[facility] Progress Note Note: NURSE ANDIE CALLED TO REPORT THIS PT WANTS A CHANGE TO HER SUBOXONE SCHEDULE. THAT PT STATES SHE WANTS NIGHT DOSE EARLIER AT 5 P.M BECAUSE 9PM DOSE KEEPS HER SLEEPLESS. PLAN:WILL CHANGE 10 PM DOSE TO 6P.M DAILY START SUBOXONE 8MG/2 MG SL BID AT 1000 & 1800.
--- NOTE | 2019-04-04 14:51 | PN ---
Psychiatric Progress Note Vital Signs: Vital Signs Period Temp Pulse Resp BP Sys/Carey Pulse Ox Last 24 Hr 97.0 F 69 16-18 111/65 Date of Session: 04/04/19 Chief Complaint:: Follow up ROS: Patient is a 34 years old female with history of ADHD, depression , Cocaine abuse, Opioid dependence on agonist therapy admitted to inpatient rehab onn03/27/19 Current Medications: Active Medications Generic Name Dose Route Start Last Admin Trade Name Freq PRN Reason Stop Dose Admin Acetaminophen 650 mg 03/27/19 17:56 04/04/19 10:00 Tylenol - PO 650 mg Q4H PRN Administration FEVER Al Hydroxide/Mg Hydroxide 30 ml 03/27/19 17:56 Mylanta Oral Suspension - PO Q6H PRN DYSPEPSIA Bacitracin 1 applic 03/27/19 18:30 04/04/19 09:57 Bacitracin - TP Not Given DAILY CALISTA Buprenorphine/Naloxone 1 each 04/05/19 10:00 Suboxone 8mg/2mg Sl Film - SL BID@1000,1800 CALISTA Colloidal Oatmeal 1 applic 04/02/19 12:58 04/02/19 14:39 Aveeno Soap - TP 1 applic DAILY PRN Administration HYGEINE Eucalyptus/Menthol/Phenol/Sorbitol 1 each 03/27/19 17:56 Cepastat Lozenge - MM Q4H PRN SORE THROAT Fluoxetine HCl 40 mg 03/30/19 19:28 04/04/19 09:56 Prozac - PO 40 mg DAILY CALISTA Administration Gabapentin 800 mg 04/04/19 22:00 Neurontin - PO TID CALISTA Guaifenesin 10 ml 03/27/19 17:56 Robitussin - PO Q6H PRN COUGH Hydroxyzine Pamoate 50 mg 04/04/19 14:39 Vistaril - PO Q4H PRN ANXIETY Ibuprofen 800 mg 04/02/19 13:33 04/04/19 06:19 Motrin - PO 800 mg Q12H PRN Administration Pain level 4-6 Lidocaine 1 patch 04/04/19 11:30 04/04/19 11:48 Lidoderm Patch - TP 1 patch DAILY CALISTA Administration Lidocaine/Aluminum/Magnesium/Simeth 5 ml 04/03/19 12:15 04/04/19 12:18 Magic Mouthwash *Sjr Formula* - MM 5 ml Q6HPO CALISTA Administration Loperamide HCl 4 mg 03/27/19 17:56 Imodium - PO Q6H PRN DIARRHEA Magnesium Citrate 300 ml 03/27/19 17:56 Citroma - PO Q48H PRN CONSTIPATION Magnesium Hydroxide 30 ml 03/27/19 17:56 Milk Of Magnesia - PO DAILY PRN CONSTIPATION Melatonin 5 mg 03/27/19 22:00 04/04/19 01:15 Melatonin PO 5 mg HS PRN Administration INSOMNIA Miscellaneous 1 each 04/04/19 22:00 Lidoderm Patch Removal MC DAILY@2200 CALISTA Multi-Ingredient Lotion 1 applic 03/29/19 11:29 04/04/19 14:20 Eucerin (Small Jar) - TP 1 applic BID PRN Administration DRY SKIN Nicotine 21 mg 03/28/19 10:00 04/04/19 09:56 Nicoderm Patch - TD 21 mg DAILY CALISTA Administration Phenytoin Sodium 100 mg 03/27/19 22:00 04/04/19 14:18 Dilantin - PO 100 mg TID CALISTA Administration Multivit/Folic Acid/Iron 1 tab 03/28/19 10:00 04/04/19 09:57 Vitamins (Sjr) - PO 1 tab DAILY CALISTA Administration Pseudoephedrine/Triprolidine 1 combo 03/27/19 17:56 Actifed - PO TID PRN NASAL CONGESTION Thiamine HCl 100 mg 03/27/19 22:00 04/03/19 21:21 Vitamin B1 - PO 100 mg HS CALISTA Administration Trazodone HCl 50 mg 03/28/19 22:00 04/03/19 21:21 Desyrel - PO 50 mg HS CALISTA Administration Trimethoprim/Sulfamethoxazole 1 each 03/27/19 22:00 04/04/19 09:57 Bactrim Ds - PO 1 each BID CALISTA Administration Venlafaxine HCl 37.5 mg 03/31/19 10:00 04/04/19 09:57 Effexor Xr - PO 37.5 mg DAILY CALISTA Administration Medication(s) Change(s): Increase Vistaril to 50 mg po Q 4hrs prn for anxitety and Gabapentin 800 mg po TID Current Side Effect: No Lab tests ordered: Yes Lab tests reviewed: Yes Provider note:: Patient reports feeling anxious despite taking Gabapentin 600 mg po TID, Effexor XR 37.5 mg po daily, Prozac 40 mg po daily and Vistaril 25 mg po Q 4hrs prn for anxiety. She does not want to accept increase in Effexor XR dose citing feeling depressed after doing that twice in the past. Discussed with patient about increasing Gabapentin to 800 mg/tid & Vistaril to 50 mg po Q 4hrs prn and she agreed to do that Total face to face time:: 25 Mental Status Exam - Mental Status Exam Alert and Oriented to: Time, Place, Person Cognitive Function: Fair Patient Appearance: Well Groomed Mood: Anxious Affect: Appropriate Patient Behavior: Cooperative Speech Pattern: Clear Voice Loudness: Normal Thought Process: Intact, Goal Oriented Thought Disorder: Not Present Hallucinations: Denies Suicidal Ideation: Denies Insight/Judgement: Fair Sleep: Fair Appetite: Good Muscle strength/Tone: Rigidity Gait/Station: Normal Psychiatric Treatment Plan - Problem List (1) ADHD Current Visit: Yes (2) History of depression Current Visit: Yes (3) Cocaine dependence Current Visit: Yes (4) Opioid dependence on agonist therapy Current Visit: Yes (5) Substance-induced sleep disorder Current Visit: Yes Initial treatment plan: 1) Discontinue Gabapentin and Vistaril as currently ordered. 2) Start Gabapentin 800 mg po TID and Vistaril 50 mg po Q 4hrs prn for anxiety. 3) Continue Prozac 40mg po daily, Effexor XR 37.5 mg po daily and Trazadone 50 mg po HS as currently ordered. 4) Continue inpatient rehabilitation
[2019-04-04] MEDS ORDERED: BUPRENORPHINE/NALOXONE 8 MG/2 MG FILM PACKET SL ONE (18:00)
[2019-04-04] MEDS: hydrOXYzine PAMOATE 50 MG CAPSULE (FP) PO PRN (18:57)
[2019-04-04] MEDS: traZODone HCL 50 MG TABLET (FP) PO SCH (21:32)
[2019-04-04] MEDS: THIAMINE HCL 100 MG TABLET (FP) PO SCH (21:32)
[2019-04-04] MEDS: LIDOCAINE PATCH REMOVAL MC SCH (21:33)
[2019-04-04] MEDS: GABAPENTIN 400 MG CAPSULE (FP) PO SCH (21:34)
[2019-04-05] MEDS: MAG HYDROX/ALH/SMC/DPHA/LIDO 240 ML MOUTHWASH MM SCH ×4 (00:39→18:30)
[2019-04-05] MEDS ORDERED: PT OWN MED DRAWER 7, Y5N ONE ×2 (03:17→08:26)
[2019-04-05] MEDS: ACETAMINOPHEN 325 MG TABLET (FP) PO PRN (03:45)
[2019-04-05] MEDS: hydrOXYzine PAMOATE 50 MG CAPSULE (FP) PO PRN ×4 (03:45→21:35)
[2019-04-05] MEDS: GABAPENTIN 400 MG CAPSULE (FP) PO SCH ×3 (06:37→21:35)
[2019-04-05] MEDS: PHENYTOIN NA EXTENDED 100 MG CAPSULE (FP) PO SCH ×3 (06:38→21:35)
[2019-04-05] MEDS: IBUPROFEN 400 MG TABLET (FP) PO PRN (06:38)
[2019-04-05] MEDS: VENLAFAXINE HCL 37.5 MG E.R. CAPSULE (FP) PO SCH (09:41)
[2019-04-05] MEDS: FLUoxetine HCL 20 MG CAPSULE (FP) PO SCH (09:41)
[2019-04-05] MEDS: BUPRENORPHINE/NALOXONE 8 MG/2 MG FILM PACKET SL SCH ×2 (09:41→18:49)
[2019-04-05] MEDS: NICOTINE 21 MG/24 HOURS TOPICAL PATCH TD SCH (09:41)
[2019-04-05] MEDS: PRENATAL VITAMINS W/ FOLIC ACID TABLET (FP) PO SCH (09:41)
[2019-04-05] MEDS: SULFAMETHOXAZOLE/TRIMETHOPRIM 800MG/160MG D.S. TABLET PO SCH ×2 (09:41→21:35)
[2019-04-05] MEDS: LIDOCAINE 5% TOPICAL PATCH TP SCH (09:42)
[2019-04-05] MEDS: BACITRACIN 15 GM TUBE TOPICAL OINTMENT TP SCH (09:44)
--- NOTE | 2019-04-05 10:09 | PN ---
S Progress Note (SOAP) Subjective: C/o numbness and tingling in toes. States that the numbness started yesterday. Reports that she cannot feel the tips of her toes, but can feel all other parts of her feet. PMHx of falls on coccyx and falls that resulted in injury to the ankles requiring surgery. Reports degenerative disc disease. No reported hx of Diabetes, HIV, or peripheral neuropathy.Presently on gabapentin. Objective: Slight swelling of right ankle noted, no discoloration of ankles, feet or calves bilaterally. Feet sensitive to blunt touch on all areas but toes. Unable to feel blunt of sharp touch on toes. Stride when walking is normal, able to place full foot on the ground, bend at arch and toes, no hesitancy noted. Full ROM ankles and feet. 04/05/19 10:09 CBC, BMP 03/28/19 09:10 03/28/19 09:10 Vital Signs (72 hours) 04/03/19 04/03/19 04/04/19 00:30 07:11 00:30 Temperature 97.6 F Pulse Rate 80 Respiratory 17 18 16 Rate Blood Pressure 99/67 04/04/19 04/04/19 04/05/19 03:30 06:55 03:30 Temperature 97.0 F L Pulse Rate 69 Respiratory 16 18 16 Rate Blood Pressure 111/65 04/05/19 06:48 Temperature 97.7 F Pulse Rate 79 Respiratory 18 Rate Blood Pressure 99/66 04/05/19 10:10 04/05/19 10:13 Assessment: Tingling and numbness in toes, cause unknown 04/05/19 10:11 Plan: Gabapentin was increased to 800mg BID from 600mg BID yesterday. This may help with the feelings of numbness and tingling. Patient is also on Vitamin B1. Advised patient to wear safe shoes when walking. F/U with primary care provider when discharged. Will make nurses aware of patient's problem and consider fall precautions.
[2019-04-05] MEDS: THIAMINE HCL 100 MG TABLET (FP) PO SCH (21:35)
[2019-04-05] MEDS: traZODone HCL 50 MG TABLET (FP) PO SCH (21:35)
[2019-04-05] MEDS: MELATONIN 5 MG TABLETS PO PRN (21:35)
[2019-04-05] MEDS: LIDOCAINE PATCH REMOVAL MC SCH (21:37)
[2019-04-06] MEDS: MAG HYDROX/ALH/SMC/DPHA/LIDO 240 ML MOUTHWASH MM SCH ×5 (00:39→23:26)
[2019-04-06] MEDS ORDERED: PT OWN MED DRAWER 7, Y5N ONE ×5 (03:01→21:39)
[2019-04-06] MEDS: hydrOXYzine PAMOATE 50 MG CAPSULE (FP) PO PRN ×3 (06:43→21:18)
[2019-04-06] MEDS: GABAPENTIN 400 MG CAPSULE (FP) PO SCH ×3 (06:44→21:19)
[2019-04-06] MEDS: IBUPROFEN 400 MG TABLET (FP) PO PRN ×2 (06:44→21:19)
[2019-04-06] MEDS: PHENYTOIN NA EXTENDED 100 MG CAPSULE (FP) PO SCH ×3 (06:44→21:19)
[2019-04-06] MEDS: SULFAMETHOXAZOLE/TRIMETHOPRIM 800MG/160MG D.S. TABLET PO SCH ×2 (09:42→21:19)
[2019-04-06] MEDS: VENLAFAXINE HCL 37.5 MG E.R. CAPSULE (FP) PO SCH (09:42)
[2019-04-06] MEDS: LIDOCAINE 5% TOPICAL PATCH TP SCH (09:42)
[2019-04-06] MEDS: PRENATAL VITAMINS W/ FOLIC ACID TABLET (FP) PO SCH (09:42)
[2019-04-06] MEDS: BACITRACIN 15 GM TUBE TOPICAL OINTMENT TP SCH (09:42)
[2019-04-06] MEDS: FLUoxetine HCL 20 MG CAPSULE (FP) PO SCH (09:42)
[2019-04-06] MEDS: NICOTINE 21 MG/24 HOURS TOPICAL PATCH TD SCH (09:42)
[2019-04-06] MEDS: BUPRENORPHINE/NALOXONE 8 MG/2 MG FILM PACKET SL SCH ×2 (09:45→17:29)
[2019-04-06] MEDS: ACETAMINOPHEN 325 MG TABLET (FP) PO PRN (10:43)
[2019-04-06] MEDS: traZODone HCL 50 MG TABLET (FP) PO SCH (21:19)
[2019-04-06] MEDS: THIAMINE HCL 100 MG TABLET (FP) PO SCH (21:19)
[2019-04-06] MEDS: LIDOCAINE PATCH REMOVAL MC SCH (21:19)
[2019-04-07] MEDS: hydrOXYzine PAMOATE 50 MG CAPSULE (FP) PO PRN ×4 (04:27→21:34)
[2019-04-07] MEDS ORDERED: PT OWN MED DRAWER 7, Y5N ONE (06:10)
[2019-04-07] MEDS: PHENYTOIN NA EXTENDED 100 MG CAPSULE (FP) PO SCH ×3 (06:29→21:37)
[2019-04-07] MEDS: MAG HYDROX/ALH/SMC/DPHA/LIDO 240 ML MOUTHWASH MM SCH ×3 (06:29→17:35)
[2019-04-07] MEDS: GABAPENTIN 400 MG CAPSULE (FP) PO SCH ×3 (06:29→21:37)
[2019-04-07] MEDS: BACITRACIN 15 GM TUBE TOPICAL OINTMENT TP SCH (09:40)
[2019-04-07] MEDS: NICOTINE 21 MG/24 HOURS TOPICAL PATCH TD SCH (09:40)
[2019-04-07] MEDS: LIDOCAINE 5% TOPICAL PATCH TP SCH (09:41)
[2019-04-07] MEDS: IBUPROFEN 400 MG TABLET (FP) PO PRN ×2 (09:42→21:37)
[2019-04-07] MEDS: FLUoxetine HCL 20 MG CAPSULE (FP) PO SCH (09:42)
[2019-04-07] MEDS: SULFAMETHOXAZOLE/TRIMETHOPRIM 800MG/160MG D.S. TABLET PO SCH ×2 (09:42→21:36)
[2019-04-07] MEDS: PRENATAL VITAMINS W/ FOLIC ACID TABLET (FP) PO SCH (09:42)
[2019-04-07] MEDS: VENLAFAXINE HCL 37.5 MG E.R. CAPSULE (FP) PO SCH (09:43)
[2019-04-07] MEDS: BUPRENORPHINE/NALOXONE 8 MG/2 MG FILM PACKET SL SCH ×2 (09:44→17:36)
[2019-04-07] MEDS: ACETAMINOPHEN 325 MG TABLET (FP) PO PRN (15:12)
[2019-04-07] MEDS: NICOTINE POLACRILEX 2 MG GUM BUC PRN (15:14)
[2019-04-07] MEDS: THIAMINE HCL 100 MG TABLET (FP) PO SCH (21:34)
[2019-04-07] MEDS: LIDOCAINE PATCH REMOVAL MC SCH (21:35)
[2019-04-07] MEDS: traZODone HCL 50 MG TABLET (FP) PO SCH (21:37)
[2019-04-08] MEDS: MAG HYDROX/ALH/SMC/DPHA/LIDO 240 ML MOUTHWASH MM SCH ×5 (00:59→23:24)
[2019-04-08] MEDS ORDERED: PT OWN MED DRAWER 7, Y5N ONE ×2 (05:51→08:21)
[2019-04-08] MEDS: GABAPENTIN 400 MG CAPSULE (FP) PO SCH ×3 (06:10→21:42)
[2019-04-08] MEDS: hydrOXYzine PAMOATE 50 MG CAPSULE (FP) PO PRN ×3 (06:10→21:44)
[2019-04-08] MEDS: ACETAMINOPHEN 325 MG TABLET (FP) PO PRN (06:10)
[2019-04-08] MEDS: PHENYTOIN NA EXTENDED 100 MG CAPSULE (FP) PO SCH ×3 (06:10→21:42)
[2019-04-08] MEDS: BUPRENORPHINE/NALOXONE 8 MG/2 MG FILM PACKET SL SCH ×2 (09:43→17:15)
[2019-04-08] MEDS: BACITRACIN 15 GM TUBE TOPICAL OINTMENT TP SCH (09:44)
[2019-04-08] MEDS: VENLAFAXINE HCL 37.5 MG E.R. CAPSULE (FP) PO SCH (09:44)
[2019-04-08] MEDS: LIDOCAINE 5% TOPICAL PATCH TP SCH (09:44)
[2019-04-08] MEDS: PRENATAL VITAMINS W/ FOLIC ACID TABLET (FP) PO SCH (09:44)
[2019-04-08] MEDS: NICOTINE 21 MG/24 HOURS TOPICAL PATCH TD SCH (09:44)
[2019-04-08] MEDS: FLUoxetine HCL 20 MG CAPSULE (FP) PO SCH (09:44)
[2019-04-08] MEDS: SULFAMETHOXAZOLE/TRIMETHOPRIM 800MG/160MG D.S. TABLET PO SCH ×2 (09:44→21:42)
[2019-04-08] MEDS: IBUPROFEN 400 MG TABLET (FP) PO PRN (09:45)
[2019-04-08] MEDS: traZODone HCL 50 MG TABLET (FP) PO SCH (21:42)
[2019-04-08] MEDS: THIAMINE HCL 100 MG TABLET (FP) PO SCH (21:42)
[2019-04-08] MEDS: LIDOCAINE PATCH REMOVAL MC SCH (22:03)
[2019-04-09] MEDS: GABAPENTIN 400 MG CAPSULE (FP) PO SCH ×3 (06:29→21:15)
[2019-04-09] MEDS: PHENYTOIN NA EXTENDED 100 MG CAPSULE (FP) PO SCH ×3 (06:29→21:15)
[2019-04-09] MEDS: MAG HYDROX/ALH/SMC/DPHA/LIDO 240 ML MOUTHWASH MM SCH ×3 (06:31→19:04)
[2019-04-09] MEDS: LIDOCAINE 5% TOPICAL PATCH TP SCH (09:35)
[2019-04-09] MEDS: VENLAFAXINE HCL 37.5 MG E.R. CAPSULE (FP) PO SCH (09:35)
[2019-04-09] MEDS: BACITRACIN 15 GM TUBE TOPICAL OINTMENT TP SCH (09:35)
[2019-04-09] MEDS: SULFAMETHOXAZOLE/TRIMETHOPRIM 800MG/160MG D.S. TABLET PO SCH (09:35)
[2019-04-09] MEDS: PRENATAL VITAMINS W/ FOLIC ACID TABLET (FP) PO SCH (09:36)
[2019-04-09] MEDS: NICOTINE 21 MG/24 HOURS TOPICAL PATCH TD SCH (09:36)
[2019-04-09] MEDS: FLUoxetine HCL 20 MG CAPSULE (FP) PO SCH (09:36)
[2019-04-09] MEDS: BUPRENORPHINE/NALOXONE 8 MG/2 MG FILM PACKET SL SCH ×2 (09:37→17:31)
--- NOTE | 2019-04-09 11:17 | PN ---
S Progress Note Note: PT REQUESTING LIDOCAINE PATCH DOSING TIME BE CHANGED TO 7 A.M. PT ALSO REQUESTING XRAY OF HER FINGERS STATING HIT IT MONTHE AGO BUT DENIES ANY DISCOMFORT. Vital Signs 04/09/19 04/09/19 03:30 07:05 Temperature 97.8 F Pulse Rate 82 Respiratory 18 18 Rate Blood Pressure 107/66 SKIN:CELLULITIS OF LEFT ARM RESOLVED RIGHT KNEE BRUISE HEALING WITH NO OPEN WOUND,DRAINAGE OR SCAB. ALL FINGERS WITH NO ACUTE REDNESS OR SWELLING OR PAIN. A:HX CELLULITIS PLAN:CONTINUE REHAB D/C BACTRIM DS--TX COMPLETE D/W PT TO FOLLOW UP WITH PRIMARY CARE/ORTHOPEDICS AFTER REHAB IF CONTINUED CONCERN.
[2019-04-09] MEDS ORDERED: LIDOCAINE VISCOUS 2% ORAL/TOP 100 ML BOTTLE MM PRN (11:18)
[2019-04-09] MEDS: IBUPROFEN 400 MG TABLET (FP) PO PRN (13:45)
[2019-04-09] MEDS: hydrOXYzine PAMOATE 50 MG CAPSULE (FP) PO PRN ×2 (13:46→19:05)
[2019-04-09] MEDS ORDERED: PT OWN MED DRAWER 7, Y5N ONE (17:17)
[2019-04-09] MEDS: ACETAMINOPHEN 325 MG TABLET (FP) PO PRN (19:05)
[2019-04-09] MEDS: THIAMINE HCL 100 MG TABLET (FP) PO SCH (21:15)
[2019-04-09] MEDS: traZODone HCL 50 MG TABLET (FP) PO SCH (21:15)
[2019-04-09] MEDS: LIDOCAINE PATCH REMOVAL MC SCH (21:16)
[2019-04-09] MEDS: MELATONIN 5 MG TABLETS PO PRN (21:17)
[2019-04-10] MEDS: MAG HYDROX/ALH/SMC/DPHA/LIDO 240 ML MOUTHWASH MM SCH ×5 (00:42→23:55)
[2019-04-10] MEDS: PHENYTOIN NA EXTENDED 100 MG CAPSULE (FP) PO SCH ×3 (06:22→21:27)
[2019-04-10] MEDS: IBUPROFEN 400 MG TABLET (FP) PO PRN (06:22)
[2019-04-10] MEDS: GABAPENTIN 400 MG CAPSULE (FP) PO SCH ×3 (06:22→21:27)
[2019-04-10] MEDS: hydrOXYzine PAMOATE 50 MG CAPSULE (FP) PO PRN ×3 (06:23→21:29)
[2019-04-10] MEDS: NICOTINE POLACRILEX 2 MG GUM BUC PRN (06:23)
[2019-04-10] MEDS: LIDOCAINE 5% TOPICAL PATCH TP SCH (06:24)
[2019-04-10] MEDS: FLUoxetine HCL 20 MG CAPSULE (FP) PO SCH (09:32)
[2019-04-10] MEDS: BUPRENORPHINE/NALOXONE 8 MG/2 MG FILM PACKET SL SCH ×2 (09:32→17:27)
[2019-04-10] MEDS: NICOTINE 21 MG/24 HOURS TOPICAL PATCH TD SCH (09:32)
[2019-04-10] MEDS: PRENATAL VITAMINS W/ FOLIC ACID TABLET (FP) PO SCH (09:32)
[2019-04-10] MEDS: VENLAFAXINE HCL 37.5 MG E.R. CAPSULE (FP) PO SCH (10:07)
[2019-04-10] MEDS: BACITRACIN 15 GM TUBE TOPICAL OINTMENT TP SCH (10:08)
--- NOTE | 2019-04-10 12:03 | PN ---
S Progress Note (SOAP) Subjective: patient requesting x-ray of right third digit. States that she requested an x- ray from the [facility] yesterday and was informed that it was not needed. Denies injury to hand prior to admission or while in rehab. Objective: Full ROM right third digit and finger. 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 No edema or echhymosis noted. 04/10/19 12:01 Assessment: Full ROM, right third digit. 04/10/19 12:02 Plan: There is no evidence at this time that an x-ray of the right third digit is needed. Will continue to monitor.
[2019-04-10] MEDS: THIAMINE HCL 100 MG TABLET (FP) PO SCH (21:27)
[2019-04-10] MEDS: traZODone HCL 50 MG TABLET (FP) PO SCH (21:27)
[2019-04-10] MEDS: LIDOCAINE PATCH REMOVAL MC SCH (21:28)
[2019-04-10] MEDS: MELATONIN 5 MG TABLETS PO PRN (21:29)
[2019-04-11] MEDS: hydrOXYzine PAMOATE 50 MG CAPSULE (FP) PO PRN ×3 (03:13→21:20)
[2019-04-11] MEDS: IBUPROFEN 400 MG TABLET (FP) PO PRN (03:13)
[2019-04-11] MEDS: GABAPENTIN 400 MG CAPSULE (FP) PO SCH ×3 (06:39→21:20)
[2019-04-11] MEDS: PHENYTOIN NA EXTENDED 100 MG CAPSULE (FP) PO SCH ×3 (06:39→21:20)
[2019-04-11] MEDS: MAG HYDROX/ALH/SMC/DPHA/LIDO 240 ML MOUTHWASH MM SCH ×3 (06:39→18:47)
[2019-04-11] MEDS: NICOTINE POLACRILEX 2 MG GUM BUC PRN (06:40)
[2019-04-11] MEDS: LIDOCAINE 5% TOPICAL PATCH TP SCH (06:41)
[2019-04-11] MEDS ORDERED: PT OWN MED DRAWER 7, Y5N ONE (09:13)
[2019-04-11] MEDS: PRENATAL VITAMINS W/ FOLIC ACID TABLET (FP) PO SCH (09:39)
[2019-04-11] MEDS: BACITRACIN 15 GM TUBE TOPICAL OINTMENT TP SCH (09:39)
[2019-04-11] MEDS: BUPRENORPHINE/NALOXONE 8 MG/2 MG FILM PACKET SL SCH ×2 (09:39→17:31)
[2019-04-11] MEDS: FLUoxetine HCL 20 MG CAPSULE (FP) PO SCH (09:39)
[2019-04-11] MEDS: NICOTINE 21 MG/24 HOURS TOPICAL PATCH TD SCH (09:39)
[2019-04-11] MEDS: VENLAFAXINE HCL 37.5 MG E.R. CAPSULE (FP) PO SCH (09:39)
[2019-04-11] MEDS: ACETAMINOPHEN 325 MG TABLET (FP) PO PRN (21:20)
[2019-04-11] MEDS: THIAMINE HCL 100 MG TABLET (FP) PO SCH (21:20)
[2019-04-11] MEDS: traZODone HCL 50 MG TABLET (FP) PO SCH (21:20)
[2019-04-11] MEDS: MELATONIN 5 MG TABLETS PO PRN (21:20)
[2019-04-11] MEDS: LIDOCAINE PATCH REMOVAL MC SCH (21:22)
[2019-04-12] MEDS: MAG HYDROX/ALH/SMC/DPHA/LIDO 240 ML MOUTHWASH MM SCH ×4 (00:22→18:08)
[2019-04-12] MEDS: ACETAMINOPHEN 325 MG TABLET (FP) PO PRN (02:36)
[2019-04-12] MEDS: hydrOXYzine PAMOATE 50 MG CAPSULE (FP) PO PRN ×4 (02:36→21:33)
[2019-04-12] MEDS: GABAPENTIN 400 MG CAPSULE (FP) PO SCH ×3 (06:09→21:33)
[2019-04-12] MEDS: NICOTINE POLACRILEX 2 MG GUM BUC PRN (06:09)
[2019-04-12] MEDS: PHENYTOIN NA EXTENDED 100 MG CAPSULE (FP) PO SCH ×3 (06:09→21:32)
[2019-04-12] MEDS: LIDOCAINE 5% TOPICAL PATCH TP SCH (06:10)
[2019-04-12] MEDS ORDERED: PT OWN MED DRAWER 7, Y5N ONE ×2 (08:36→09:08)
[2019-04-12] MEDS: BUPRENORPHINE/NALOXONE 8 MG/2 MG FILM PACKET SL SCH ×2 (09:07→17:57)
[2019-04-12] MEDS: VENLAFAXINE HCL 37.5 MG E.R. CAPSULE (FP) PO SCH (09:07)
[2019-04-12] MEDS: BACITRACIN 15 GM TUBE TOPICAL OINTMENT TP SCH (09:07)
[2019-04-12] MEDS: NICOTINE 21 MG/24 HOURS TOPICAL PATCH TD SCH (09:07)
[2019-04-12] MEDS: PRENATAL VITAMINS W/ FOLIC ACID TABLET (FP) PO SCH (09:07)
[2019-04-12] MEDS: IBUPROFEN 400 MG TABLET (FP) PO PRN (09:08)
[2019-04-12] MEDS: FLUoxetine HCL 20 MG CAPSULE (FP) PO SCH (09:42)
[2019-04-12] MEDS ORDERED: LIDOCAINE VISCOUS 2% ORAL/TOP 20 ML UNIT-DOSE CUP MM PRN (14:20)
--- NOTE | 2019-04-12 14:24 | PN ---
S Progress Note (SOAP) Subjective: pt c/o tooth discomfort on left lower molar. reports "magic mouthwash not effective". Objective: 04/12/19 14:22 Vital Signs 04/12/19 06:46 Temperature 97.9 F Pulse Rate 80 Respiratory 18 Rate Blood Pressure 110/69 lower right molar area, no redness or swelling noted. Assessment: 04/12/19 14:24 tooth ache Plan: Viscous lidocaine 2%swish as directed.
[2019-04-12] MEDS: traZODone HCL 50 MG TABLET (FP) PO SCH (21:32)
[2019-04-12] MEDS: THIAMINE HCL 100 MG TABLET (FP) PO SCH (21:32)
[2019-04-12] MEDS: MELATONIN 5 MG TABLETS PO PRN (21:33)
[2019-04-12] MEDS: LIDOCAINE PATCH REMOVAL MC SCH (21:34)
[2019-04-13] MEDS: MAG HYDROX/ALH/SMC/DPHA/LIDO 240 ML MOUTHWASH MM SCH ×5 (00:15→23:39)
[2019-04-13] MEDS ORDERED: PT OWN MED DRAWER 7, Y5N ONE ×3 (05:53→13:56)
[2019-04-13] MEDS: LIDOCAINE 5% TOPICAL PATCH TP SCH (07:13)
[2019-04-13] MEDS: GABAPENTIN 400 MG CAPSULE (FP) PO SCH ×3 (07:14→21:52)
[2019-04-13] MEDS: PHENYTOIN NA EXTENDED 100 MG CAPSULE (FP) PO SCH ×3 (07:15→21:52)
--- NOTE | 2019-04-13 09:31 | PN ---
Psychiatric Progress Note Vital Signs: Vital Signs Period Temp Pulse Resp BP Sys/Carey Pulse Ox Last 24 Hr 98.0 F 94 17-18 107/65 Date of Session: 04/13/19 Chief Complaint:: " I can't sleep and i still feel sad." HPI: Patient reports worsening anxiety, insomnia, and feeling sad. ROS: Patient coherent, alert and oriented X3. Current Medications: Active Medications Generic Name Dose Route Start Last Admin Trade Name Freq PRN Reason Stop Dose Admin Acetaminophen 650 mg 03/27/19 17:56 04/12/19 02:36 Tylenol - PO 650 mg Q4H PRN Administration FEVER Al Hydroxide/Mg Hydroxide 30 ml 03/27/19 17:56 Mylanta Oral Suspension - PO Q6H PRN DYSPEPSIA Bacitracin 1 applic 03/27/19 18:30 04/12/19 09:07 Bacitracin - TP Not Given DAILY CALISTA Buprenorphine/Naloxone 1 each 04/05/19 10:00 04/12/19 17:57 Suboxone 8mg/2mg Sl Film - SL 1 each BID@1000,1800 CALISTA Administration Colloidal Oatmeal 1 applic 04/02/19 12:58 04/02/19 14:39 Aveeno Soap - TP 1 applic DAILY PRN Administration HYGEINE Eucalyptus/Menthol/Phenol/Sorbitol 1 each 03/27/19 17:56 Cepastat Lozenge - MM Q4H PRN SORE THROAT Fluoxetine HCl 40 mg 03/30/19 19:28 04/12/19 09:42 Prozac - PO 40 mg DAILY CALISTA Administration Gabapentin 800 mg 04/04/19 22:00 04/13/19 07:14 Neurontin - PO 800 mg TID CALISTA Administration Guaifenesin 10 ml 03/27/19 17:56 Robitussin - PO Q6H PRN COUGH Hydroxyzine Pamoate 50 mg 04/04/19 14:39 04/12/19 21:33 Vistaril - PO 50 mg Q4H PRN Administration ANXIETY Ibuprofen 800 mg 04/02/19 13:33 04/12/19 09:08 Motrin - PO 800 mg Q12H PRN Administration Pain level 4-6 Lidocaine 1 patch 04/10/19 07:00 04/13/19 07:13 Lidoderm Patch - TP 1 patch DAILY@0700 CALISTA Administration Lidocaine HCl 20 ml 06/27/19 14:20 Xylocaine 2% Viscous Oral - MM TID PRN ORAL PAIN/MOUTH SORES Lidocaine/Aluminum/Magnesium/Simeth 5 ml 04/03/19 12:15 04/13/19 07:43 Magic Mouthwash *Sjr Formula* - MM Not Given Q6HPO CALISTA Loperamide HCl 4 mg 03/27/19 17:56 Imodium - PO Q6H PRN DIARRHEA Magnesium Citrate 300 ml 03/27/19 17:56 Citroma - PO Q48H PRN CONSTIPATION Magnesium Hydroxide 30 ml 03/27/19 17:56 Milk Of Magnesia - PO DAILY PRN CONSTIPATION Melatonin 5 mg 03/27/19 22:00 04/12/19 21:33 Melatonin PO 5 mg HS PRN Administration INSOMNIA Miscellaneous 1 each 04/04/19 22:00 04/12/19 21:34 Lidoderm Patch Removal MC 1 each DAILY@2200 CALISTA Administration Multi-Ingredient Lotion 1 applic 03/29/19 11:29 04/04/19 14:20 Eucerin (Small Jar) - TP 1 applic BID PRN Administration DRY SKIN Nicotine 21 mg 03/28/19 10:00 04/12/19 09:07 Nicoderm Patch - TD 21 mg DAILY CALISTA Administration Nicotine Polacrilex 2 mg 04/04/19 15:55 04/12/19 06:09 Nicorette Gum - BUC 2 mg Q2H PRN Administration NICOTINE REPLACEMENT RX Phenytoin Sodium 100 mg 03/27/19 22:00 04/13/19 07:15 Dilantin - PO 100 mg TID CALISTA Administration Multivit/Folic Acid/Iron 1 tab 03/28/19 10:00 04/12/19 09:07 Vitamins (Sjr) - PO 1 tab DAILY CALISTA Administration Pseudoephedrine/Triprolidine 1 combo 03/27/19 17:56 Actifed - PO TID PRN NASAL CONGESTION Thiamine HCl 100 mg 03/27/19 22:00 04/12/19 21:32 Vitamin B1 - PO 100 mg HS CALISTA Administration Trazodone HCl 50 mg 03/28/19 22:00 04/12/19 21:32 Desyrel - PO 50 mg HS CALISTA Administration Venlafaxine HCl 37.5 mg 03/31/19 10:00 04/12/19 09:07 Effexor Xr - PO 37.5 mg DAILY CALISTA Administration Medication(s) Change(s): Yes. Current Side Effect: No Lab tests ordered: No Lab tests reviewed: Yes Provider note:: Patient reports feeling sad secondary to her history of heroin dependence. Reports experiencing amotivation, feeling sluggish, and difficulty sleeping. Also reports worsening anxiety. Patient reports sobriety for 2 years and relapsed before admission to rehab. Patient is currently prescribed effexor 37.5 daily + Prozac 40mg + Trazodone 50mg. States the effexor only worsens her mood and is agreeable in discontinuing medication. Patient denies suicidal and homicidal ideation. Will d/c effexor 37.5. Will d/c prozac 40mg and order prozac 60mh. Will d/c Trazodone 50mg and order 100mg HS. Benefits and side effects discussed. Verbal consent given. Patient denies thoughts or urges to hurt self or others. Total face to face time:: 25 Mental Status Exam - Mental Status Exam Alert and Oriented to: Time, Place, Person Cognitive Function: Good Patient Appearance: Well Groomed Mood: Sad Affect: Appropriate Patient Behavior: Appropriate, Cooperative Speech Pattern: Appropriate Voice Loudness: Normal Thought Process: Intact, Goal Oriented Thought Disorder: Not Present Hallucinations: Denies Suicidal Ideation: Denies Homicidal Ideation: Denies Insight/Judgement: Poor Sleep: Poorly Appetite: Fair Muscle strength/Tone: Normal Gait/Station: Normal Psychiatric Treatment Plan - Problem List (1) Cocaine use disorder Current Visit: Yes (2) History of depression Current Visit: Yes (3) Opioid dependence on agonist therapy Current Visit: Yes (4) Opioid use disorder Current Visit: Yes (5) Insomnia Current Visit: Yes
[2019-04-13] MEDS: VENLAFAXINE HCL 37.5 MG E.R. CAPSULE (FP) PO SCH (09:41)
[2019-04-13] MEDS: BACITRACIN 15 GM TUBE TOPICAL OINTMENT TP SCH (09:41)
[2019-04-13] MEDS: FLUoxetine HCL 20 MG CAPSULE (FP) PO SCH (09:41)
[2019-04-13] MEDS: PRENATAL VITAMINS W/ FOLIC ACID TABLET (FP) PO SCH (09:41)
[2019-04-13] MEDS: NICOTINE 21 MG/24 HOURS TOPICAL PATCH TD SCH (09:42)
[2019-04-13] MEDS: hydrOXYzine PAMOATE 50 MG CAPSULE (FP) PO PRN ×3 (09:43→21:54)
[2019-04-13] MEDS: BUPRENORPHINE/NALOXONE 8 MG/2 MG FILM PACKET SL SCH ×2 (09:44→17:44)
[2019-04-13] MEDS ORDERED: HYDROCORTISONE 1% TOPICAL OINT 30 GM TUBE TP PRN (15:46)
--- NOTE | 2019-04-13 15:53 | PN ---
S Progress Note Note: pt states that she has had itching and redness of neck that started 2 days ago- has become worse. Went out today- exposed to heat and sun. States she has a h/o eczema. PE- redness across front side of neck, fine maculo-papular linear lines, elbow area cleared of past infection a/p: h/o eczema-with dermatitis across neck- hydrocrotisone ointment BID prn, re -evaluate if not better.
[2019-04-13] MEDS: THIAMINE HCL 100 MG TABLET (FP) PO SCH (21:52)
[2019-04-13] MEDS: MELATONIN 5 MG TABLETS PO PRN (21:52)
[2019-04-13] MEDS: LIDOCAINE PATCH REMOVAL MC SCH (21:53)
[2019-04-13] MEDS: traZODone HCL 100 MG TABLET (FP) PO SCH (21:54)
[2019-04-14] MEDS: GABAPENTIN 400 MG CAPSULE (FP) PO SCH ×3 (06:24→21:51)
[2019-04-14] MEDS: IBUPROFEN 400 MG TABLET (FP) PO PRN ×2 (06:25→17:52)
[2019-04-14] MEDS: PHENYTOIN NA EXTENDED 100 MG CAPSULE (FP) PO SCH ×3 (06:25→21:51)
[2019-04-14] MEDS: MAG HYDROX/ALH/SMC/DPHA/LIDO 240 ML MOUTHWASH MM SCH ×4 (06:25→23:15)
[2019-04-14] MEDS: hydrOXYzine PAMOATE 50 MG CAPSULE (FP) PO PRN ×2 (06:25→17:54)
[2019-04-14] MEDS: LIDOCAINE 5% TOPICAL PATCH TP SCH (06:26)
[2019-04-14] MEDS: NICOTINE 21 MG/24 HOURS TOPICAL PATCH TD SCH (09:32)
[2019-04-14] MEDS: PRENATAL VITAMINS W/ FOLIC ACID TABLET (FP) PO SCH (09:32)
[2019-04-14] MEDS: BUPRENORPHINE/NALOXONE 8 MG/2 MG FILM PACKET SL SCH ×2 (09:33→17:51)
[2019-04-14] MEDS ORDERED: FLUoxetine HCL 20 MG CAPSULE (FP) PO SCH (10:00)
[2019-04-14] MEDS: FLUoxetine HCL 20 MG CAPSULE (FP) PO SCH (11:00)
[2019-04-14] MEDS: traZODone HCL 100 MG TABLET (FP) PO SCH (21:51)
[2019-04-14] MEDS: THIAMINE HCL 100 MG TABLET (FP) PO SCH (21:51)
[2019-04-14] MEDS: LIDOCAINE PATCH REMOVAL MC SCH (21:51)
[2019-04-15] MEDS: hydrOXYzine PAMOATE 50 MG CAPSULE (FP) PO PRN ×2 (03:28→14:38)
[2019-04-15] MEDS: GABAPENTIN 400 MG CAPSULE (FP) PO SCH ×3 (06:09→21:07)
[2019-04-15] MEDS: PHENYTOIN NA EXTENDED 100 MG CAPSULE (FP) PO SCH ×3 (06:09→21:07)
[2019-04-15] MEDS: MAG HYDROX/ALH/SMC/DPHA/LIDO 240 ML MOUTHWASH MM SCH ×3 (06:10→17:50)
[2019-04-15] MEDS: LIDOCAINE 5% TOPICAL PATCH TP SCH (06:10)
[2019-04-15] MEDS: PRENATAL VITAMINS W/ FOLIC ACID TABLET (FP) PO SCH (09:38)
[2019-04-15] MEDS: COLLOIDAL OATMEAL 1 BAR EACH TP PRN (09:38)
[2019-04-15] MEDS: BUPRENORPHINE/NALOXONE 8 MG/2 MG FILM PACKET SL SCH ×2 (09:38→17:51)
[2019-04-15] MEDS: FLUoxetine HCL 20 MG CAPSULE (FP) PO SCH (09:39)
[2019-04-15] MEDS: NICOTINE 21 MG/24 HOURS TOPICAL PATCH TD SCH (09:39)
[2019-04-15] MEDS: IBUPROFEN 400 MG TABLET (FP) PO PRN (14:38)
[2019-04-15] MEDS ORDERED: PT OWN MED DRAWER 7, Y5N ONE ×2 (17:49→17:53)
[2019-04-15] MEDS: THIAMINE HCL 100 MG TABLET (FP) PO SCH (21:07)
[2019-04-15] MEDS: LIDOCAINE PATCH REMOVAL MC SCH (21:08)
[2019-04-15] MEDS: traZODone HCL 100 MG TABLET (FP) PO SCH (21:09)
[2019-04-15] MEDS: MELATONIN 5 MG TABLETS PO PRN (21:10)
[2019-04-15] MEDS: ACETAMINOPHEN 325 MG TABLET (FP) PO PRN (21:10)
[2019-04-16] MEDS: MAG HYDROX/ALH/SMC/DPHA/LIDO 240 ML MOUTHWASH MM SCH ×4 (02:54→17:41)
[2019-04-16] MEDS: IBUPROFEN 400 MG TABLET (FP) PO PRN (06:15)
[2019-04-16] MEDS: GABAPENTIN 400 MG CAPSULE (FP) PO SCH ×3 (06:15→21:05)
[2019-04-16] MEDS: PHENYTOIN NA EXTENDED 100 MG CAPSULE (FP) PO SCH ×3 (06:15→21:05)
[2019-04-16] MEDS: hydrOXYzine PAMOATE 50 MG CAPSULE (FP) PO PRN ×4 (06:16→22:18)
[2019-04-16] MEDS ORDERED: PT OWN MED DRAWER 7, Y5N ONE ×2 (06:37→08:42)
[2019-04-16] MEDS: LIDOCAINE 5% TOPICAL PATCH TP SCH (06:48)
[2019-04-16] MEDS: MINERAL OIL/PETROLAT/WATER TOPICAL CREAM 113 GM JAR TP PRN (06:51)
[2019-04-16] MEDS: NICOTINE 21 MG/24 HOURS TOPICAL PATCH TD SCH (09:33)
[2019-04-16] MEDS: FLUoxetine HCL 20 MG CAPSULE (FP) PO SCH (09:34)
[2019-04-16] MEDS: PRENATAL VITAMINS W/ FOLIC ACID TABLET (FP) PO SCH (09:34)
[2019-04-16] MEDS: BUPRENORPHINE/NALOXONE 8 MG/2 MG FILM PACKET SL SCH ×2 (09:34→17:42)
[2019-04-16] MEDS: ACETAMINOPHEN 325 MG TABLET (FP) PO PRN (13:57)
[2019-04-16] MEDS: MELATONIN 5 MG TABLETS PO PRN (21:05)
[2019-04-16] MEDS: THIAMINE HCL 100 MG TABLET (FP) PO SCH (21:05)
[2019-04-16] MEDS: LIDOCAINE PATCH REMOVAL MC SCH (21:05)
[2019-04-16] MEDS: traZODone HCL 100 MG TABLET (FP) PO SCH (21:06)
[2019-04-17] MEDS: MAG HYDROX/ALH/SMC/DPHA/LIDO 240 ML MOUTHWASH MM SCH ×5 (00:36→23:50)
[2019-04-17] MEDS: GABAPENTIN 400 MG CAPSULE (FP) PO SCH ×3 (06:42→21:18)
[2019-04-17] MEDS: LIDOCAINE 5% TOPICAL PATCH TP SCH (06:43)
[2019-04-17] MEDS: PHENYTOIN NA EXTENDED 100 MG CAPSULE (FP) PO SCH ×3 (06:43→21:18)
[2019-04-17] MEDS: NICOTINE 21 MG/24 HOURS TOPICAL PATCH TD SCH (09:38)
[2019-04-17] MEDS: PRENATAL VITAMINS W/ FOLIC ACID TABLET (FP) PO SCH (09:38)
[2019-04-17] MEDS: FLUoxetine HCL 20 MG CAPSULE (FP) PO SCH (09:38)
[2019-04-17] MEDS: BUPRENORPHINE/NALOXONE 8 MG/2 MG FILM PACKET SL SCH ×2 (09:38→18:12)
[2019-04-17] MEDS: hydrOXYzine PAMOATE 50 MG CAPSULE (FP) PO PRN ×3 (09:39→21:17)
[2019-04-17] MEDS: ACETAMINOPHEN 325 MG TABLET (FP) PO PRN (09:39)
--- NOTE | 2019-04-17 16:06 | PN ---
[facility] Progress Note (SOAP) Subjective: Patient continues to complain of rash around neck, shoulders, and chest. Was prescribed hydrocortisone cream yesterday, but states it is not working. States that she has experienced a rash from detergent in the past. Objective: Red, blotchy skin on chest, neck and shoulders, also redness on arms. Some light excoriation from scratching. 04/17/19 16:03 04/17/19 16:05 CBC, BMP 03/28/19 09:10 03/28/19 09:10 Vital Signs (72 hours) 04/15/19 04/15/19 04/16/19 00:30 07:07 00:30 Temperature 98.4 F Pulse Rate 76 Respiratory 18 18 18 Rate Blood Pressure 106/69 04/16/19 04/16/19 04/17/19 03:30 07:01 00:30 Temperature 97.8 F Pulse Rate 80 Respiratory 18 18 16 Rate Blood Pressure 92/58 L 04/17/19 04/17/19 03:30 07:11 Temperature 98.1 F Pulse Rate 76 Respiratory 16 18 Rate Blood Pressure 107/69 Assessment: Allergic dermatitis. Plan: Benadryl cream ordered. Will continue to monitor.
[2019-04-17] MEDS: THIAMINE HCL 100 MG TABLET (FP) PO SCH (21:17)
[2019-04-17] MEDS: MELATONIN 5 MG TABLETS PO PRN (21:17)
[2019-04-17] MEDS: traZODone HCL 100 MG TABLET (FP) PO SCH (21:18)
[2019-04-17] MEDS: LIDOCAINE PATCH REMOVAL MC SCH (21:19)
[2019-04-18] MEDS: hydrOXYzine PAMOATE 50 MG CAPSULE (FP) PO PRN ×4 (01:26→21:10)
[2019-04-18] MEDS: PHENYTOIN NA EXTENDED 100 MG CAPSULE (FP) PO SCH ×3 (06:23→21:10)
[2019-04-18] MEDS: GABAPENTIN 400 MG CAPSULE (FP) PO SCH ×3 (06:23→21:11)
[2019-04-18] MEDS: IBUPROFEN 400 MG TABLET (FP) PO PRN ×2 (06:24→20:15)
[2019-04-18] MEDS: LIDOCAINE 5% TOPICAL PATCH TP SCH (06:25)
[2019-04-18] MEDS: MAG HYDROX/ALH/SMC/DPHA/LIDO 240 ML MOUTHWASH MM SCH ×3 (06:26→17:23)
[2019-04-18] MEDS ORDERED: PT OWN MED DRAWER 7, Y5N ONE ×2 (08:40→21:09)
[2019-04-18] MEDS: NICOTINE 21 MG/24 HOURS TOPICAL PATCH TD SCH (09:52)
[2019-04-18] MEDS: FLUoxetine HCL 20 MG CAPSULE (FP) PO SCH ×2 (09:53→18:04)
[2019-04-18] MEDS: BUPRENORPHINE/NALOXONE 8 MG/2 MG FILM PACKET SL SCH ×2 (09:53→18:05)
[2019-04-18] MEDS: PRENATAL VITAMINS W/ FOLIC ACID TABLET (FP) PO SCH (09:53)
--- NOTE | 2019-04-18 10:56 | PN ---
Psychiatric Progress Note Vital Signs: Vital Signs Period Temp Pulse Resp BP Sys/Carey Pulse Ox Last 24 Hr 97.9 F 68 18-18 102/62 Date of Session: 04/18/19 Chief Complaint:: " I still feel anxious." HPI: Patient admitted to for opioid + cocaine dependence co-morbid with MDD and Anxiety Disorder. Patient presents as mildly anxious and reports feeling sad. ROS: Patient is coherent, alert and oriented X3. Current Medications: Active Medications Generic Name Dose Route Start Last Admin Trade Name Freq PRN Reason Stop Dose Admin Acetaminophen 650 mg 03/27/19 17:56 04/17/19 09:39 Tylenol - PO 650 mg Q4H PRN Administration FEVER Al Hydroxide/Mg Hydroxide 30 ml 03/27/19 17:56 Mylanta Oral Suspension - PO Q6H PRN DYSPEPSIA Buprenorphine/Naloxone 1 each 04/05/19 10:00 04/18/19 09:53 Suboxone 8mg/2mg Sl Film - SL 1 each BID@1000,1800 CALISTA Administration Colloidal Oatmeal 1 applic 04/02/19 12:58 04/15/19 09:38 Aveeno Soap - TP 1 bar DAILY PRN Administration HYGEINE Eucalyptus/Menthol/Phenol/Sorbitol 1 each 03/27/19 17:56 Cepastat Lozenge - MM Q4H PRN SORE THROAT Fluoxetine HCl 40 mg 04/14/19 10:00 04/18/19 09:53 Prozac - PO 40 mg DAILY CALISTA Administration Gabapentin 800 mg 04/04/19 22:00 04/18/19 06:23 Neurontin - PO 800 mg TID CALISTA Administration Guaifenesin 10 ml 03/27/19 17:56 Robitussin - PO Q6H PRN COUGH Hydrocortisone 1 applic 04/13/19 15:46 04/15/19 17:53 Hytone 1% Ointment - TP 1 applic BID PRN Administration FOR ITCHING Hydroxyzine Pamoate 50 mg 04/04/19 14:39 04/18/19 06:24 Vistaril - PO 50 mg Q4H PRN Administration ANXIETY Ibuprofen 800 mg 04/02/19 13:33 04/18/19 06:24 Motrin - PO 800 mg Q12H PRN Administration Pain level 4-6 Lidocaine 1 patch 04/10/19 07:00 04/18/19 06:25 Lidoderm Patch - TP 1 patch DAILY@0700 CALISTA Administration Lidocaine HCl 20 ml 04/12/19 14:20 04/13/19 14:02 Xylocaine 2% Viscous Oral - MM 20 ml TID PRN Administration ORAL PAIN/MOUTH SORES Lidocaine/Aluminum/Magnesium/Simeth 5 ml 04/03/19 12:15 04/18/19 06:26 Magic Mouthwash *Sjr Formula* - MM Not Given Q6HPO CALISTA Loperamide HCl 4 mg 03/27/19 17:56 Imodium - PO Q6H PRN DIARRHEA Magnesium Citrate 300 ml 03/27/19 17:56 Citroma - PO Q48H PRN CONSTIPATION Magnesium Hydroxide 30 ml 03/27/19 17:56 Milk Of Magnesia - PO DAILY PRN CONSTIPATION Melatonin 5 mg 03/27/19 22:00 04/17/19 21:17 Melatonin PO 5 mg HS PRN Administration INSOMNIA Miscellaneous 1 each 04/04/19 22:00 04/17/19 21:19 Lidoderm Patch Removal MC 1 each DAILY@2200 CALISTA Administration Multi-Ingredient Lotion 1 applic 03/29/19 11:29 04/16/19 06:51 Eucerin (Small Jar) - TP 1 applic BID PRN Administration DRY SKIN Nicotine 21 mg 03/28/19 10:00 04/18/19 09:52 Nicoderm Patch - TD 21 mg DAILY CALISTA Administration Nicotine Polacrilex 2 mg 04/04/19 15:55 04/12/19 06:09 Nicorette Gum - BUC 2 mg Q2H PRN Administration NICOTINE REPLACEMENT RX Phenytoin Sodium 100 mg 03/27/19 22:00 04/18/19 06:23 Dilantin - PO 100 mg TID CALISTA Administration Multivit/Folic Acid/Iron 1 tab 03/28/19 10:00 04/18/19 09:53 Vitamins (Sjr) - PO Not Given DAILY CALISTA Pseudoephedrine/Triprolidine 1 combo 03/27/19 17:56 Actifed - PO TID PRN NASAL CONGESTION Thiamine HCl 100 mg 03/27/19 22:00 04/17/19 21:17 Vitamin B1 - PO 100 mg HS CALISTA Administration Trazodone HCl 100 mg 04/13/19 22:00 04/17/19 21:18 Desyrel - PO 100 mg HS CALISTA Administration Zinc Acetate/Diphenhydramine 1 applic 04/17/19 15:05 04/18/19 09:52 Benadryl 2% Cream TP Not Given BID [facility] Medication(s) Change(s): Yes. Current Side Effect: No Lab tests ordered: No Lab tests reviewed: Yes Provider note:: Patient continues to report anxiety and sadness. Patient is currently prescribed prozac 40mg + Trazodone 100mg + Gabapentin 800mg TID. Patient states her anxiety is most likely from her lack of discharge plan as she does not know where she will be going after discharge. She continues to report sadness although is motivated to continue with rehab. Patient denies suicidal/homicidal ideation. Patient agreeable in accepting an increase in prozac. Will d/c prozac 40mg and order prozac 60mg. Total face to face time:: 25 Mental Status Exam - Mental Status Exam Alert and Oriented to: Time, Place, Person Cognitive Function: Good Patient Appearance: Well Groomed Mood: Sad Affect: Appropriate Patient Behavior: Cooperative Speech Pattern: Appropriate Voice Loudness: Normal Thought Process: Goal Oriented Thought Disorder: Not Present Hallucinations: Denies Suicidal Ideation: Denies Homicidal Ideation: Denies Insight/Judgement: Poor Sleep: Fair Appetite: Fair Muscle strength/Tone: Normal Gait/Station: Normal Psychiatric Treatment Plan - Problem List (1) Cocaine use disorder Current Visit: Yes (2) History of depression Current Visit: Yes (3) Opioid dependence on agonist therapy Current Visit: Yes (4) Opioid use disorder Current Visit: Yes (5) Insomnia Current Visit: Yes
--- NOTE | 2019-04-18 14:05 | PN ---
S Progress Note (SOAP) Subjective: Patient c/o right foot pain. States hx of bone spurs, treated this admission for pain in the right foot and tingling in the toes. Objective: No deformities noted bilaterally, some slight swelling of right foot. Full weight bearing and no hesitation in ambulating, Full ROM of ankles and feet. 04/18/19 14:00 04/18/19 14:03 Assessment: Chronic right foot pain. Bone Spurs 04/18/19 14:01 Patient is on maximum dose of motrin, has a lidocaine patch, with limited relief. 04/18/19 14:02 Plan: PLAN: will add muscle relaxant and shaun-charles to pain regimen. Instructed patient to elevate legs when at rest to reduce swelling.
[2019-04-18] MEDS: CYCLOBENZAPRINE HCL 10 MG TABLET (FP) PO SCH ×2 (14:54→21:11)
[2019-04-18] MEDS: traZODone HCL 100 MG TABLET (FP) PO SCH (21:11)
[2019-04-18] MEDS: MELATONIN 5 MG TABLETS PO PRN (21:11)
[2019-04-18] MEDS: METHYL SALICYLATE/MENTHOL OINT 30 GM TUBE TP SCH (21:12)
[2019-04-18] MEDS: LIDOCAINE PATCH REMOVAL MC SCH (21:13)
[2019-04-18] MEDS: THIAMINE HCL 100 MG TABLET (FP) PO SCH (21:13)
[2019-04-19] MEDS: MAG HYDROX/ALH/SMC/DPHA/LIDO 240 ML MOUTHWASH MM SCH ×2 (00:28→06:15)
[2019-04-19] MEDS: GABAPENTIN 400 MG CAPSULE (FP) PO SCH ×3 (06:15→21:32)
[2019-04-19] MEDS: hydrOXYzine PAMOATE 50 MG CAPSULE (FP) PO PRN ×3 (06:16→21:33)
[2019-04-19] MEDS: CYCLOBENZAPRINE HCL 10 MG TABLET (FP) PO SCH ×3 (06:16→21:32)
[2019-04-19] MEDS: IBUPROFEN 400 MG TABLET (FP) PO PRN (06:16)
[2019-04-19] MEDS: PHENYTOIN NA EXTENDED 100 MG CAPSULE (FP) PO SCH ×3 (06:16→21:33)
[2019-04-19] MEDS: LIDOCAINE 5% TOPICAL PATCH TP SCH (06:17)
[2019-04-19] MEDS ORDERED: PT OWN MED DRAWER 7, Y5N ONE (08:46)
[2019-04-19] MEDS: FLUoxetine HCL 20 MG CAPSULE (FP) PO SCH (09:37)
[2019-04-19] MEDS: NICOTINE 21 MG/24 HOURS TOPICAL PATCH TD SCH (09:37)
[2019-04-19] MEDS: PRENATAL VITAMINS W/ FOLIC ACID TABLET (FP) PO SCH (09:37)
[2019-04-19] MEDS: BUPRENORPHINE/NALOXONE 8 MG/2 MG FILM PACKET SL SCH ×2 (09:39→17:55)
[2019-04-19] MEDS: ACETAMINOPHEN 325 MG TABLET (FP) PO PRN (14:05)
--- NOTE | 2019-04-19 15:11 | PN ---
S Progress Note (SOAP) Subjective: States that pain in right foot continues. Described as stabbing. Was seen for same pain yesterday. Objective: Physical examination unchanged from yesterday. Full ROM and weight bearing. minimal swelling to right ankle and foot. 04/19/19 15:05 04/19/19 15:09 Assessment: Pain appears to fluctuate between numbness, tingling, and stabbing pain. Patient is on maximum dose of ibuprofen and high dose of gabapentin without relief. Also has a lidocaine patch. Yesterday a muscle relaxant and shaun-charles was added, with no relief. Diagnoses: Chronic right ankle pain Bone spurs 04/19/19 15:06 04/19/19 15:09 04/19/19 15:12 Plan: Will change ibuprofen to Naprosyn; add ankle bandage. Advised patient to elevate legs when at rest; exercises recommended. Alternating warm/cold compresses.
[2019-04-19] MEDS: MELATONIN 5 MG TABLETS PO PRN (21:32)
[2019-04-19] MEDS: THIAMINE HCL 100 MG TABLET (FP) PO SCH (21:32)
[2019-04-19] MEDS: NAPROXEN 500 MG TABLET (FP) PO SCH (21:34)
[2019-04-19] MEDS: LIDOCAINE PATCH REMOVAL MC SCH (21:35)
[2019-04-19] MEDS: traZODone HCL 100 MG TABLET (FP) PO SCH (21:35)
[2019-04-19] MEDS: METHYL SALICYLATE/MENTHOL OINT 30 GM TUBE TP SCH (21:35)
[2019-04-20] MEDS: LIDOCAINE 5% TOPICAL PATCH TP SCH (06:20)
[2019-04-20] MEDS: GABAPENTIN 400 MG CAPSULE (FP) PO SCH ×3 (06:20→21:25)
[2019-04-20] MEDS: CYCLOBENZAPRINE HCL 10 MG TABLET (FP) PO SCH ×3 (06:20→21:25)
[2019-04-20] MEDS: PHENYTOIN NA EXTENDED 100 MG CAPSULE (FP) PO SCH ×3 (06:20→21:25)
[2019-04-20] MEDS: NICOTINE POLACRILEX 2 MG GUM BUC PRN (06:24)
[2019-04-20] MEDS: NICOTINE 21 MG/24 HOURS TOPICAL PATCH TD SCH (09:55)
[2019-04-20] MEDS: NAPROXEN 500 MG TABLET (FP) PO SCH ×2 (09:55→21:25)
[2019-04-20] MEDS: FLUoxetine HCL 20 MG CAPSULE (FP) PO SCH (09:56)
[2019-04-20] MEDS: PRENATAL VITAMINS W/ FOLIC ACID TABLET (FP) PO SCH (09:56)
[2019-04-20] MEDS: BUPRENORPHINE/NALOXONE 8 MG/2 MG FILM PACKET SL SCH ×2 (09:56→17:36)
[2019-04-20] MEDS: hydrOXYzine PAMOATE 50 MG CAPSULE (FP) PO PRN ×3 (09:57→21:24)
[2019-04-20] MEDS: THIAMINE HCL 100 MG TABLET (FP) PO SCH (21:24)
[2019-04-20] MEDS: MELATONIN 5 MG TABLETS PO PRN (21:26)
[2019-04-20] MEDS: LIDOCAINE PATCH REMOVAL MC SCH (21:26)
[2019-04-20] MEDS: traZODone HCL 100 MG TABLET (FP) PO SCH (21:26)
[2019-04-20] MEDS: METHYL SALICYLATE/MENTHOL OINT 30 GM TUBE TP SCH (21:26)
[2019-04-21] MEDS: PHENYTOIN NA EXTENDED 100 MG CAPSULE (FP) PO SCH ×3 (06:27→21:05)
[2019-04-21] MEDS: GABAPENTIN 400 MG CAPSULE (FP) PO SCH ×3 (06:27→21:05)
[2019-04-21] MEDS: LIDOCAINE 5% TOPICAL PATCH TP SCH (06:27)
[2019-04-21] MEDS: CYCLOBENZAPRINE HCL 10 MG TABLET (FP) PO SCH ×3 (06:27→21:05)
[2019-04-21] MEDS: FLUoxetine HCL 20 MG CAPSULE (FP) PO SCH (09:45)
[2019-04-21] MEDS: BUPRENORPHINE/NALOXONE 8 MG/2 MG FILM PACKET SL SCH ×2 (09:45→17:27)
[2019-04-21] MEDS: NAPROXEN 500 MG TABLET (FP) PO SCH ×2 (09:45→21:05)
[2019-04-21] MEDS: PRENATAL VITAMINS W/ FOLIC ACID TABLET (FP) PO SCH (09:45)
[2019-04-21] MEDS: NICOTINE 21 MG/24 HOURS TOPICAL PATCH TD SCH (09:45)
[2019-04-21] MEDS: hydrOXYzine PAMOATE 50 MG CAPSULE (FP) PO PRN ×3 (09:46→21:08)
[2019-04-21] MEDS ORDERED: PT OWN MED DRAWER 7, Y5N ONE (14:55)
[2019-04-21] MEDS: traZODone HCL 100 MG TABLET (FP) PO SCH (21:05)
[2019-04-21] MEDS: MELATONIN 5 MG TABLETS PO PRN (21:06)
[2019-04-21] MEDS: THIAMINE HCL 100 MG TABLET (FP) PO SCH (21:06)
[2019-04-21] MEDS: LIDOCAINE PATCH REMOVAL MC SCH (21:09)
[2019-04-21] MEDS: METHYL SALICYLATE/MENTHOL OINT 30 GM TUBE TP SCH (21:09)
[2019-04-22] MEDS: LIDOCAINE 5% TOPICAL PATCH TP SCH (06:52)
[2019-04-22] MEDS: CYCLOBENZAPRINE HCL 10 MG TABLET (FP) PO SCH ×3 (06:52→21:12)
[2019-04-22] MEDS: GABAPENTIN 400 MG CAPSULE (FP) PO SCH ×3 (06:52→21:12)
[2019-04-22] MEDS: PHENYTOIN NA EXTENDED 100 MG CAPSULE (FP) PO SCH ×3 (06:52→21:12)
[2019-04-22] MEDS: NICOTINE 21 MG/24 HOURS TOPICAL PATCH TD SCH (09:26)
[2019-04-22] MEDS: BUPRENORPHINE/NALOXONE 8 MG/2 MG FILM PACKET SL SCH ×2 (09:26→18:00)
[2019-04-22] MEDS: PRENATAL VITAMINS W/ FOLIC ACID TABLET (FP) PO SCH (09:26)
[2019-04-22] MEDS: NAPROXEN 500 MG TABLET (FP) PO SCH ×2 (09:26→21:12)
[2019-04-22] MEDS: FLUoxetine HCL 20 MG CAPSULE (FP) PO SCH (09:26)
[2019-04-22] MEDS: hydrOXYzine PAMOATE 50 MG CAPSULE (FP) PO PRN ×3 (09:27→18:38)
[2019-04-22] MEDS: traZODone HCL 100 MG TABLET (FP) PO SCH (21:12)
[2019-04-22] MEDS: THIAMINE HCL 100 MG TABLET (FP) PO SCH (21:12)
[2019-04-22] MEDS: MELATONIN 5 MG TABLETS PO PRN (21:12)
[2019-04-22] MEDS: LIDOCAINE PATCH REMOVAL MC SCH (21:14)
[2019-04-22] MEDS: METHYL SALICYLATE/MENTHOL OINT 30 GM TUBE TP SCH (21:14)
[2019-04-23] MEDS: PHENYTOIN NA EXTENDED 100 MG CAPSULE (FP) PO SCH ×3 (06:04→21:32)
[2019-04-23] MEDS: CYCLOBENZAPRINE HCL 10 MG TABLET (FP) PO SCH ×3 (06:05→21:32)
[2019-04-23] MEDS: LIDOCAINE 5% TOPICAL PATCH TP SCH (06:05)
[2019-04-23] MEDS: GABAPENTIN 400 MG CAPSULE (FP) PO SCH ×3 (06:05→21:32)
[2019-04-23] MEDS: hydrOXYzine PAMOATE 50 MG CAPSULE (FP) PO PRN ×3 (08:59→21:33)
[2019-04-23] MEDS: NICOTINE 21 MG/24 HOURS TOPICAL PATCH TD SCH (09:00)
[2019-04-23] MEDS: FLUoxetine HCL 20 MG CAPSULE (FP) PO SCH (09:00)
[2019-04-23] MEDS: PRENATAL VITAMINS W/ FOLIC ACID TABLET (FP) PO SCH (09:00)
[2019-04-23] MEDS: BUPRENORPHINE/NALOXONE 8 MG/2 MG FILM PACKET SL SCH ×2 (09:01→17:32)
[2019-04-23] MEDS: NAPROXEN 500 MG TABLET (FP) PO SCH ×2 (09:01→21:32)
--- NOTE | 2019-04-23 13:37 | PN ---
[facility] Progress Note Note: Patient is scheduled for discharge tomorrow. Scripts for 30 days supply of medications(Prozac 60 mg/day, Gabapentin 800 mmg/tid, Trazadone 100 mg/hs) will be electronically transmitted to [facility] at [address] [place] [address]
[2019-04-23] MEDS: LIDOCAINE PATCH REMOVAL MC SCH (21:32)
[2019-04-23] MEDS: THIAMINE HCL 100 MG TABLET (FP) PO SCH (21:32)
[2019-04-23] MEDS: traZODone HCL 100 MG TABLET (FP) PO SCH (21:32)
[2019-04-23] MEDS: MELATONIN 5 MG TABLETS PO PRN (21:33)
[2019-04-23] MEDS: METHYL SALICYLATE/MENTHOL OINT 30 GM TUBE TP SCH (21:34)
[2019-04-24] MEDS: PHENYTOIN NA EXTENDED 100 MG CAPSULE (FP) PO SCH (05:58)
[2019-04-24] MEDS: GABAPENTIN 400 MG CAPSULE (FP) PO SCH (05:58)
[2019-04-24] MEDS: CYCLOBENZAPRINE HCL 10 MG TABLET (FP) PO SCH (05:58)
[2019-04-24] MEDS: hydrOXYzine PAMOATE 50 MG CAPSULE (FP) PO PRN (05:58)
[2019-04-24 06:38] VITALS: BP 107/66; PULSE 100; TEMP 98.2
[2019-04-24] MEDS: LIDOCAINE 5% TOPICAL PATCH TP SCH (08:21)
--- NOTE | 2019-04-24 10:07 | PN ---
[facility] Progress Note (SOAP) Subjective: PT COMPLETED REHAB AND DISCHARGED TODAY. PT MET WITH COUNSELOR AND HAS BEEN REFERRED TO CD AFTERCARE TO [facility]. PT REPORTS SHE HAS A PRIMARY CARE/MAT PROVIDER WITH [facility] ON [address] IN [place], [place] WITH DR. RYAN ERICKSON FOR MEDICAL MANAGEMENT/SUBOXONE MANAGEMENT. 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 ALERT O X 3. DENIES S/H/I. Objective: 04/24/19 09:59 Vital Signs - 24 hr 04/24/19 04/24/19 04/24/19 00:30 03:30 06:37 Temperature 98.2 F Pulse Rate 100 H Respiratory 18 18 16 Rate Blood Pressure 107/66 Laboratory Tests 03/27/19 03/28/19 03/28/19 17:34 06:50 09:10 WBC 5.0 RBC 4.16 Hgb 12.9 Hct 38.0 MCV 91.4 MCH 31.0 MCHC 33.9 RDW 13.9 Plt Count 270 MPV 7.7 Sodium Potassium Chloride Carbon Dioxide Anion Gap BUN Creatinine Est GFR (CKD-EPI)AfAm Est GFR (CKD-EPI)NonAf Random Glucose Calcium Total Bilirubin AST ALT Alkaline Phosphatase Total Protein Albumin Urine Color Yellow Urine Appearance Clear Urine pH 8.0 Ur Specific [place] 1.016 Urine Protein Negative Urine Glucose (UA) Negative Urine Ketones Negative Urine Blood Trace Urine Nitrite Negative Urine Bilirubin Negative Urine Urobilinogen 0.2 Ur Leukocyte Esterase Trace Urine WBC (Auto) 3 Urine RBC (Auto) 2 Urine Casts (Auto) 11 U Epithel Cells (Auto) 14.2 Urine Bacteria (Auto) 236.9 POC Urine HCG, Qual Negative Phenytoin RPR Titer 03/28/19 03/28/19 03/28/19 09:10 09:10 09:10 WBC RBC Hgb Hct MCV MCH MCHC RDW Plt Count MPV Sodium 143 Potassium 4.3 Chloride 109 H Carbon Dioxide 27 Anion Gap 7 L BUN 13.0 Creatinine 1.0 Est GFR (CKD-EPI)AfAm 85.12 Est GFR (CKD-EPI)NonAf 73.45 Random Glucose 88 Calcium 9.0 Total Bilirubin 0.4 AST 17 ALT 22 Alkaline Phosphatase 66 Total Protein 6.0 L Albumin 2.9 L Urine Color Urine Appearance Urine pH Ur Specific [place] Urine Protein Urine Glucose (UA) Urine Ketones Urine Blood Urine Nitrite Urine Bilirubin Urine Urobilinogen Ur Leukocyte Esterase Urine WBC (Auto) Urine RBC (Auto) Urine Casts (Auto) U Epithel Cells (Auto) Urine Bacteria (Auto) POC Urine HCG, Qual Phenytoin 2.1 L RPR Titer Nonreactive 03/31/19 04/02/19 04/04/19 10:00 07:30 08:50 WBC RBC Hgb Hct MCV MCH MCHC RDW Plt Count MPV Sodium Potassium Chloride Carbon Dioxide Anion Gap BUN Creatinine Est GFR (CKD-EPI)AfAm Est GFR (CKD-EPI)NonAf Random Glucose Calcium Total Bilirubin AST ALT Alkaline Phosphatase Total Protein Albumin Urine Color Urine Appearance Urine pH Ur Specific [place] Urine Protein Urine Glucose (UA) Urine Ketones Urine Blood Urine Nitrite Urine Bilirubin Urine Urobilinogen Ur Leukocyte Esterase Urine WBC (Auto) Urine RBC (Auto) Urine Casts (Auto) U Epithel Cells (Auto) Urine Bacteria (Auto) POC Urine HCG, Qual Phenytoin 7.8 L 8.5 L 8.7 L RPR Titer 04/06/19 09:20 WBC RBC Hgb Hct MCV MCH MCHC RDW Plt Count MPV Sodium Potassium Chloride Carbon Dioxide Anion Gap BUN Creatinine Est GFR (CKD-EPI)AfAm Est GFR (CKD-EPI)NonAf Random Glucose Calcium Total Bilirubin AST ALT Alkaline Phosphatase Total Protein Albumin Urine Color Urine Appearance Urine pH Ur Specific [place] Urine Protein Urine Glucose (UA) Urine Ketones Urine Blood Urine Nitrite Urine Bilirubin Urine Urobilinogen Ur Leukocyte Esterase Urine WBC (Auto) Urine RBC (Auto) Urine Casts (Auto) U Epithel Cells (Auto) Urine Bacteria (Auto) POC Urine HCG, Qual Phenytoin 10.5 RPR Titer Home Medications Medication Instructions Recorded Buprenorphine HCl/Naloxone HCl 1 each SL DAILY 03/27/19 [Suboxone 4 mg-1 mg Sl Film] Fluoxetine HCl [Prozac -] 20 mg PO DAILY 03/27/19 Gabapentin [Neurontin] 600 mg PO TID 03/27/19 Phenytoin Na Extended [Dilantin -] 100 mg PO TID 03/27/19 Venlafaxine HCl ER [Effexor Xr -] 37.5 mg PO DAILY 03/27/19 traZODone HCL [Trazodone HCl] 150 mg PO HS 03/27/19 Buprenorphine/Naloxone [Suboxone 1 each SL BID #14 packet MDD 2 04/23/19 8Mg/2Mg Sl Film -] Fluoxetine HCl [Prozac -] 60 mg PO DAILY #90 capsule 04/23/19 Gabapentin 800 mg PO TID #90 tablet 04/23/19 traZODone HCL [Desyrel -] 100 mg PO HS #30 tablet 04/23/19 Assessment: 04/24/19 09:59 NAD MEDICALLY STABLE 04/24/19 10:46 [facility] Inpatient Services Medical - Diagnosis (1) Cocaine dependence Qualifiers: Substance use status: uncomplicated Qualified Code(s): F14.20 - Cocaine dependence, uncomplicated Status: Chronic (2) Opioid dependence on agonist therapy Status: Chronic (3) Seizures Status: Chronic (4) History of depression Status: Chronic (5) Hx of mitral valve prolapse Status: Chronic Plan: D/C TODAY FOLLOW UP WITH CD AFTERCARE RECOMMENDATION FOLLOW UP WITH PRIMARY CARE
== END 2019-04-24 08:32 | disposition home or self-care (01) | DRG 772 ==
LOC: YASAS 12:57 → Y3E 18:11
PROVIDERS: ADMIT Neuromusculoskeletal Medicine & OMM; ATTEND Neuromusculoskeletal Medicine & OMM
PROC: HZ42ZZZ Group Counseling for Substance Abuse Treatment, Cognitive-Behavioral (ICD-10-PCS; principal; 2019-03-27)
DX: F14.20 Cocaine dependence, uncomplicated (principal); F11.20 Opioid dependence, uncomplicated; F19.282 Other psychoactive substance dependence with psychoactive substance-induced sleep disorder; F33.9 Major depressive disorder, recurrent, unspecified; F41.9 Anxiety disorder, unspecified; F90.9 Attention-deficit hyperactivity disorder, unspecified type; G47.00 Insomnia, unspecified; G40.909 Epilepsy, unspecified, not intractable, without status epilepticus; L30.9 Dermatitis, unspecified; M25.571 Pain in right ankle and joints of right foot; M77.8 Other enthesopathies, not elsewhere classified; K08.89 Other specified disorders of teeth and supporting structures; I34.1 Nonrheumatic mitral (valve) prolapse; Z88.0 Allergy status to penicillin; Z91.19 Patient's noncompliance with other medical treatment and regimen
CPT/HCPCS: 36415; 70150-TC-FY; 80053; 80185; 81003; 81025; 85027; 86593